=== PATIENT | female | born 1935 | race Caucasian/White ===

== ENCOUNTER 2017-09-29 17:27 | Inpatient (IN) | payer MEDICARE ==
[2017-09-29] MEDS ORDERED: Lactated Ringers 1,000 ML IV ONE (19:04)
--- NOTE | 2017-09-29 19:11 | PCM.HP ---
History of Present Illness - Chief Complaint Chief Complaint: Sepsis,Parotitis left neck Date: 09/29/17 History of Present Illness: is a 82 year old female. who is new in the last 1 month to [facility] previously being a patient at [facility]. She has a complicated past medical history with history of stroke, diabetes, anemia, afib and renal failure. She was doing well until waking up this am confused with fever and left neck swelling that was red and hot she subsequently became more tender and was not eating or drinking at [facility]. She was evaluated at [facility] were she was diaphoretic weak and in pain with tachycardia and fever. She was treated with tylenol and po clindamycin that started this am as well as warm compresses to the neck. She developed a blistered area to the central chest as well. her family was contacted and with her progressive worsening and the severity of the swelling was transported to [place] for direct admission for further work up and mgmt. - Review of Systems Constitutional: Fever, Chills, Fatigue Eyes: No Symptoms Ears, Nose, & Throat: No Symptoms Respiratory: No Cough, No Short Of Breath Cardiac: Edema, No Chest Pain, No Syncope Abdominal/Gastrointestinal: No Abdominal Pain, No Nausea, No Vomiting, No Diarrhea Genitourinary Symptoms: No Dysuria Musculoskeletal: No Back Pain, No Neck Pain Skin: No Rash Neurological: No Dizziness, No Focal Weakness, No Sensory Changes Psychological: No Symptoms Endocrine: No Symptoms Hematologic/Lymphatic: No Symptoms Immunological/Allergic: No Symptoms - Past Medical History Past Medical History: Yes Neurological History: Dementia, Stroke Cardiac History: Congestive Heart Failure (chronic diastolic), Hypertension CARDIAC HISTORY: Arrhythmia (chronic atrial fibrillation) Respiratory History: COPD, Other Endocrine Medical History: Diabetes Type II, Hypothyroidism History: Other (hx of ovarian cancer) - Past Surgical History Past Surgical History: Yes Female Surgical History: Hysterectomy Other Surgical History: tonsillectomy - Social History Smoking Status: Unknown if ever smoked Exposure to second hand smoke: No Significant Family History: no pertinent family hx - Physical Exam General Appearance: mild distress, obese, other (she does periodic breathing breathing rapidly then pausing. She opens her eyes spontaneously her speech is mumbled and difficult to understand at times this is chronic but worse currently.) Neurologic Exam: cooperative Eye Exam: pale conjunctivae, No scleral icterus Ears, Nose, Throat Exam: moist mucous membranes, other (no dentetions) Neck Exam: other (left neck at area of inferior parotid gland very firm swollen red hot and tender) Respiratory Exam: normal breath sounds, lungs clear Cardiovascular Exam: regular rate/rhythm, edema (2-3+ joon LE edema), No murmur Gastrointestinal/Abdomen Exam: soft, normal bowel sounds, other (obesity limits eam), No tenderness, No distention Extremity Exam: pedal edema, No calf tenderness Skin Exam: warm, dry, other (ecchymosis vs early blister central chest large), No jaundice Results - Radiology Impressions Radiology Exams & Impressions: Radiology Procedures Category Date Time Status CHEST 1 VIEW (PORTABLE) Urgent Exams 09/29/17 19:03 Ordered NECK WO CONTRAST [CT] Routine Exams 09/29/17 19:00 Ordered Assessment/Plan (1) Sepsis Current Visit: Yes Status: Acute Assessment & Plan: suspected due to parotitis vs abscess in neck she does not have any dentition she was on outpatient po clinda started this am but had continued decline in status sent for direct admission getting lactic acid, abg, cbc c diff, cmp, blood cultures, inr, bnp, ua ct neck chest xray bolus LR 1 L over 2 hours start meropenem 1g iv q8h and vanc pharmacy to dose (2) Parotitis Current Visit: Yes Status: Acute Code(s): K11.20 - SIALOADENITIS, UNSPECIFIED (3) Type 2 diabetes mellitus Current Visit: Yes Status: Acute (4) CKD (chronic kidney disease) Current Visit: Yes Status: Acute Code(s): N18.9 - CHRONIC KIDNEY DISEASE, UNSPECIFIED (5) Atrial fibrillation Current Visit: Yes Status: Chronic Qualifiers: Atrial fibrillation type: chronic Qualified Code(s): I48.2 - Chronic atrial fibrillation Code(s): I48.91 - UNSPECIFIED ATRIAL FIBRILLATION
[2017-09-29 20:01] LABS: A-aADO2 39; ARTERIAL BLD GAS O2 SATURATION 57.9 % (95-100); ARTERIAL BLOOD GAS BASE EXCESS 22.3 (-2.0-2.0); ARTERIAL BLOOD GAS FIO2 21 %; Lactic Acid 1.8 (0.4-2.0)
[2017-09-29 20:07] LABS: ALLEN TEST OK? yes; ARTERIAL BLOOD GAS PO2 24 mmHg (75-100)
[2017-09-29 20:24] LABS: Mean Cell Volume 110.9 fl (78-100); Mean Corpuscular Hemoglobin 30.8 pg (26-32); Mean Platelet Volume 12.7 fl (6-9.5); Platelet Count 169 K/mm3 (150-450); Red Blood Count 4.02 M/mm3 (4.1-5.4); Red Cell Distribution Width 19.9 % (11.5-14.0); White Blood Count 17.4 K/mm3 (4.0-10.5)
[2017-09-29 20:33] LABS: ALBUMIN 1.9 g/dL (3.4-5.0); ANION GAP 8.2 MEQ/L (5-15); BILIRUBIN,TOTAL 0.3 mg/dL (0.2-1.0); Carbon Dioxide 41.8 mEq/L (21-32); Potassium 4.4 mEq/L (3.5-5.1); Total Protein 8.1 gm/dL (6.4-8.2)
[2017-09-29 20:35] LABS: INR 2.7 (0.8-3.0); PROTIME 30.3 SECONDS (9.95-12.35)
[2017-09-29] MEDS ORDERED: Merrem 1 GM IV ONE (21:10)
[2017-09-29] MEDS ORDERED: Sodium Chloride 0.9% 100 ML IVPB 100 ML IV ONE (21:11)
[2017-09-29] MEDS: Dextrose 5%/Water IV Soln. 1000 ML 1,000 ML IV SCH (22:10)
[2017-09-29] MEDS: Merrem 1 GM 1 G in Sodium Chloride 100ML MINI-BAG PLUS 100 ML IV SCH (22:10)
[2017-09-29] MEDS ORDERED: VANCOCIN 1 GM VIAL*** 1 GM in Sodium Chloride 0.9% 250 ML 250 ML IV SCH (23:00)
[2017-09-29 23:13] LABS: Eosinophil 1 % (0.00-3.0); Nucleated Red Blood Cell 1 %; Total Cells Counted 100
[2017-09-29 23:15] LABS: ANISOCYTOSIS 1+; Macrocytosis 1+; Platelet Estimate NORMAL (NORMAL); Polychromasia 1+
[2017-09-29] MEDS ORDERED: Vancomycin 1GM/ Ns 250ML*** 250 ML IV ONE (23:34)
[2017-09-29 23:50] LABS: Bilirubin NEGATIVE (NEGATIVE); Blood 250 Ery/ul (0-5); COMPLETE URINE MICROSCOPIC? YES; Collection Type VOID; Glucose NEGATIVE (NEGATIVE); Leukocyte Esterase 1+ (NEGATIVE)
[2017-09-29 23:51] LABS: Bacteria MODERATE /HPF (NEGATIVE); Epithelial Cells MODERATE /HPF (FEW)
[2017-09-30] MEDS: Colace 100 MG PO SCH ×2 (01:46→22:32)
[2017-09-30] MEDS: Coreg 6.25 MG PO SCH ×3 (01:46→22:32)
[2017-09-30] MEDS: ZOCOR 20MG PO SCH ×2 (01:47→22:32)
[2017-09-30] MEDS: Lantus Insulin SQ SCH ×2 (01:47→22:32)
[2017-09-30] MEDS: MAG-OX 400 PO SCH ×3 (01:47→22:32)
[2017-09-30] MEDS ORDERED: Merrem 1 GM IV ONE (05:11)
[2017-09-30] MEDS ORDERED: Sodium Chloride 0.9% 100 ML IVPB 100 ML IV ONE (05:11)
[2017-09-30] MEDS: Merrem 1 GM 1 G in Sodium Chloride 100ML MINI-BAG PLUS 100 ML IV SCH (06:43)
[2017-09-30 06:56] LABS: ANION GAP 9.1 MEQ/L (5-15); Carbon Dioxide 39.9 mEq/L (21-32); Potassium 4.4 mEq/L (3.5-5.1)
--- NOTE | 2017-09-30 08:24 | PCM.NOTE ---
Date and Time: 09/30/17 0808 she continues to have mumbling but is awake and alert. difficult to understand her at this time she follows simple commands Objective Exam General Appearance: no apparent distress, alert, obese Neurologic Exam: alert, oriented x 3, cooperative, normal mood/affect, nml cerebellar function, sensation nml, No motor deficits Skin Exam: normal color, warm, dry Eye Exam: PERRL, EOMI, eyes nml inspection Ears, Nose, Throat Exam: moist mucous membranes, other (no dentition large firm red warm tender left parotid gland) Neck Exam: normal inspection, non-tender, supple, full range of motion Respiratory Exam: normal breath sounds, lungs clear, No respiratory distress Cardiovascular Exam: irregular Gastrointestinal/Abdomen Exam: soft, normal bowel sounds, No tenderness, No mass Extremity Exam: normal inspection, normal range of motion, pedal edema Back Exam: normal inspection, normal range of motion, No CVA tenderness, No vertebral tenderness Pelvic Exam: deferred Rectal Exam: deferred OBJECTIVE DATA Vital Signs: Vital Signs - 24 hr Temp Pulse Resp BP Pulse Ox 09/30/17 06:51 98.5 F 56 L 20 126/58 99 09/30/17 04:00 97.9 F 73 18 120/66 97 09/29/17 23:57 98.0 F 73 17 112/58 98 09/29/17 22:53 97.4 F 68 24 126/50 96 09/29/17 20:55 97.4 F 68 126/50 96 Oxygen-Last 24 hours O2 Percentage 2 Liters = 28% O2 Percentage 2 Liters = 28% O2 Percentage 2 Liters = 28% Intake and Output: Intake & Output 09/27/17 09/28/17 09/29/17 09/30/17 11:59 11:59 11:59 11:59 Intake Total 1559 Balance 1559 Weight 95.889 kg Lab Results: Accuchecks Date 09/30/17 Time 07:30 Accucheck Value: 217 Accucheck Value: 150 Lab Results-Last 24 Hours 09/29/17 09/29/17 09/29/17 Range/Units 19:45 19:57 19:57 WBC 17.4 H (4.0-10.5) K/mm3 RBC 4.02 L (4.1-5.4) M/mm3 Hgb 12.4 (12.0-16.0) gm/dl Hct 44.6 (35-47) % MCV 110.9 H (78-100) fl MCH 30.8 (26-32) pg MCHC 27.8 L (32-36) g/dl RDW 19.9 H (11.5-14.0) % Plt Count 169 (150-450) K/mm3 MPV 12.7 H (6-9.5) fl Segmented Neutrophils 78 H (36.0-66.0) % Lymphocytes (Manual) 18 L (24-44) % Monocytes (Manual) 3 (0.0-12.0) % Eosinophils (Manual) 1 (0.00-3.0) % Nucleated RBCs 1 % Differential Comment ABNORMAL Platelet Estimate NORMAL (NORMAL) Polychromasia 1+ Anisocytosis 1+ Macrocytosis 1+ INR (0.8-3.0) Puncture Site LH pCO2 69 H* (35-45) mmHg pO2 24 L* (75-100) mmHg Base Excess 22.3 H (-2.0-2.0) O2 Saturation 55.1 L (94-100) g/dF ABG pH 7.47 H (7.35-7.45) ABG HCO3 50.2 H* (22-28) ABG O2 Sat (Measured) 57.9 L (95-100) % Blaze Test yes A-a Gradient 39 a/A Ratio 0.38 Hemoglobin 12.8 Carboxyhemoglobin 4.2 (0.0-6.9) % THgb Methemoglobin 0.7 L (1.4-1.5) % Potassium 4.7 4.4 (3.5-5.1) Temperature 37.0 C POC O2 Flow Rate 21 % Sodium 160 H* (136-145) mEq/L Chloride 116 H (98-107) mEq/L Carbon Dioxide 41.8 H (21-32) mEq/L Anion Gap 8.2 (5-15) MEQ/L BUN 62 H (9-20) mg/dL Creatinine 2.81 H (0.55-1.30) mg/dl Estimated GFR 17 ML/MIN Glucose 181 H (70-110) MG/DL Lactic Acid 1.8 (0.4-2.0) Calcium 9.5 (8.5-10.1) mg/dL Total Bilirubin 0.30 (0.2-1.0) mg/dL AST 32 (15-37) U/L ALT 17 (12-78) U/L Alkaline Phosphatase 120 H (46-116) U/L NT-Pro-B Natriuret Pep 3069 H (0-450) pg/ml Serum Total Protein 8.1 (6.4-8.2) gm/dL Albumin 1.9 L (3.4-5.0) g/dL Prealbumin (18.0-35.7) mg/dL Ur Collection Type Urine Color (YELLOW) Urine Appearance (CLEAR) Urine pH (5-6) Ur Specific [place] (1.005-1.025) Urine Protein (Negative) Urine Ketones (NEGATIVE) Urine Blood (0-5) Asad/ul Urine Nitrite (NEGATIVE) Urine Bilirubin (NEGATIVE) Urine Urobilinogen (0-1) mg/dL Ur Leukocyte Esterase (NEGATIVE) Urine Microscopic RBC (0-2) /HPF Urine Microscopic WBC (0-5) /HPF Ur Epithelial Cells (FEW) /HPF Urine Bacteria (NEGATIVE) /HPF Urine Glucose (NEGATIVE) mg/dL Specimen Received 09/29/17 09/29/17 09/30/17 Range/Units 19:57 23:44 05:23 WBC (4.0-10.5) K/mm3 RBC (4.1-5.4) M/mm3 Hgb (12.0-16.0) gm/dl Hct (35-47) % MCV (78-100) fl MCH (26-32) pg MCHC (32-36) g/dl RDW (11.5-14.0) % Plt Count (150-450) K/mm3 MPV (6-9.5) fl Segmented Neutrophils (36.0-66.0) % Lymphocytes (Manual) (24-44) % Monocytes (Manual) (0.0-12.0) % Eosinophils (Manual) (0.00-3.0) % Nucleated RBCs % Differential Comment Platelet Estimate (NORMAL) Polychromasia Anisocytosis Macrocytosis INR 2.70 (0.8-3.0) Puncture Site pCO2 (35-45) mmHg pO2 (75-100) mmHg Base Excess (-2.0-2.0) O2 Saturation (94-100) g/dF ABG pH (7.35-7.45) ABG HCO3 (22-28) ABG O2 Sat (Measured) (95-100) % Blaze Test A-a Gradient a/A Ratio Hemoglobin Carboxyhemoglobin (0.0-6.9) % THgb Methemoglobin (1.4-1.5) % Potassium 4.4 (3.5-5.1) Temperature C POC O2 Flow Rate % Sodium 160 H* (136-145) mEq/L Chloride 115 H (98-107) mEq/L Carbon Dioxide 39.9 H (21-32) mEq/L Anion Gap 9.1 (5-15) MEQ/L BUN 57 H (9-20) mg/dL Creatinine 2.57 H (0.55-1.30) mg/dl Estimated GFR 19 ML/MIN Glucose 248 H (70-110) MG/DL Lactic Acid (0.4-2.0) Calcium 9.4 (8.5-10.1) mg/dL Total Bilirubin (0.2-1.0) mg/dL AST (15-37) U/L ALT (12-78) U/L Alkaline Phosphatase (46-116) U/L NT-Pro-B Natriuret Pep (0-450) pg/ml Serum Total Protein (6.4-8.2) gm/dL Albumin (3.4-5.0) g/dL Prealbumin (18.0-35.7) mg/dL Ur Collection Type VOID Urine Color YELLOW (YELLOW) Urine Appearance SLIGHTLY CLOUDY (CLEAR) Urine pH 9.0 (5-6) Ur Specific [place] 1.005 (1.005-1.025) Urine Protein 30 (Negative) Urine Ketones NEGATIVE (NEGATIVE) Urine Blood 250 (0-5) Asad/ul Urine Nitrite POSITIVE (NEGATIVE) Urine Bilirubin NEGATIVE (NEGATIVE) Urine Urobilinogen NORMAL (0-1) mg/dL Ur Leukocyte Esterase 1+ (NEGATIVE) Urine Microscopic RBC 5-10 (0-2) /HPF Urine Microscopic WBC 2-5 (0-5) /HPF Ur Epithelial Cells MODERATE (FEW) /HPF Urine Bacteria MODERATE (NEGATIVE) /HPF Urine Glucose NEGATIVE (NEGATIVE) mg/dL Specimen Received 09/29/17 22309/30/17 Range/Units 05:23 WBC (4.0-10.5) K/mm3 RBC (4.1-5.4) M/mm3 Hgb (12.0-16.0) gm/dl Hct (35-47) % MCV (78-100) fl MCH (26-32) pg MCHC (32-36) g/dl RDW (11.5-14.0) % Plt Count (150-450) K/mm3 MPV (6-9.5) fl Segmented Neutrophils (36.0-66.0) % Lymphocytes (Manual) (24-44) % Monocytes (Manual) (0.0-12.0) % Eosinophils (Manual) (0.00-3.0) % Nucleated RBCs % Differential Comment Platelet Estimate (NORMAL) Polychromasia Anisocytosis Macrocytosis INR (0.8-3.0) Puncture Site pCO2 (35-45) mmHg pO2 (75-100) mmHg Base Excess (-2.0-2.0) O2 Saturation (94-100) g/dF ABG pH (7.35-7.45) ABG HCO3 (22-28) ABG O2 Sat (Measured) (95-100) % Blaze Test A-a Gradient a/A Ratio Hemoglobin Carboxyhemoglobin (0.0-6.9) % THgb Methemoglobin (1.4-1.5) % Potassium (3.5-5.1) Temperature C POC O2 Flow Rate % Sodium (136-145) mEq/L Chloride (98-107) mEq/L Carbon Dioxide (21-32) mEq/L Anion Gap (5-15) MEQ/L BUN (9-20) mg/dL Creatinine (0.55-1.30) mg/dl Estimated GFR ML/MIN Glucose (70-110) MG/DL Lactic Acid (0.4-2.0) Calcium (8.5-10.1) mg/dL Total Bilirubin (0.2-1.0) mg/dL AST (15-37) U/L ALT (12-78) U/L Alkaline Phosphatase (46-116) U/L NT-Pro-B Natriuret Pep (0-450) pg/ml Serum Total Protein (6.4-8.2) gm/dL Albumin (3.4-5.0) g/dL Prealbumin 11.7 L (18.0-35.7) mg/dL Ur Collection Type Urine Color (YELLOW) Urine Appearance (CLEAR) Urine pH (5-6) Ur Specific [place] (1.005-1.025) Urine Protein (Negative) Urine Ketones (NEGATIVE) Urine Blood (0-5) Asad/ul Urine Nitrite (NEGATIVE) Urine Bilirubin (NEGATIVE) Urine Urobilinogen (0-1) mg/dL Ur Leukocyte Esterase (NEGATIVE) Urine Microscopic RBC (0-2) /HPF Urine Microscopic WBC (0-5) /HPF Ur Epithelial Cells (FEW) /HPF Urine Bacteria (NEGATIVE) /HPF Urine Glucose (NEGATIVE) mg/dL Specimen Received Radiology Exams: Radiology Procedures Category Date Time Status CHEST 1 VIEW (PORTABLE) Urgent Exams 09/29/17 19:03 Taken NECK WO CONTRAST [CT] Routine Exams 09/29/17 19:00 Taken Multi-Disciplinary Progress Notes: Multi-Disciplinary Progress Notes 09/30/17 07:30 Pharmacy Note by Tom Adam DOSING CONSULT DUE TO DECREASED RENAL FUNCTION: MERREM AND VANCOMYCIN CALCULATED CREATININE CLEARANCE = 13 ML/MIN RECOMMENDED RENAL DOSE FOR MERREM 500 MG Q12H CALCULATED VANCOMYCIN DOSE: 1 GM Q48H PREDICTED TROUGH = 13 MG/ML ABILIO Initialized on 09/30/17 07:30 - END OF NOTE Assessment/Plan (1) Sepsis Current Visit: Yes Status: Acute Assessment & Plan: sepsis secondary to large left parotitis improving she was on po clinda for <24 hours as outpatient prior to admission will hold her diuretics, potassium and calcium channel dori monitor the renal function continue emperic coverage with meropenem and vanc. continue the D5W for the hypernatremia she had Na of 143 on check 11 days prior to presentation so was rahter acute will try to avoid rapid correction however and also with the diabetes and severe diastolic chf with massive edema try to avoid fluid overload with her current stable vitals and good peripheral perfusion. (2) Parotitis Current Visit: Yes Status: Acute Code(s): K11.20 - SIALOADENITIS, UNSPECIFIED (3) Type 2 diabetes mellitus Current Visit: Yes Status: Acute (4) CKD (chronic kidney disease) Current Visit: Yes Status: Acute Code(s): N18.9 - CHRONIC KIDNEY DISEASE, UNSPECIFIED (5) Atrial fibrillation Current Visit: Yes Status: Chronic Qualifiers: Atrial fibrillation type: chronic Qualified Code(s): I48.2 - Chronic atrial fibrillation Code(s): I48.91 - UNSPECIFIED ATRIAL FIBRILLATION (6) Acute kidney injury Current Visit: Yes Status: Acute Code(s): N17.9 - ACUTE KIDNEY FAILURE, UNSPECIFIED (7) Hypernatremia Current Visit: Yes Status: Acute Code(s): E87.0 - HYPEROSMOLALITY AND HYPERNATREMIA
[2017-09-30] MEDS: NovoLOG Insulin SQ PRN ×4 (08:31→22:33)
[2017-09-30] MEDS ORDERED: MILK OF MAGNESIA 30 ML PO PRN (08:35)
[2017-09-30] MEDS ORDERED: TYLENOL 325 MG PO PRN (08:35)
[2017-09-30] MEDS ORDERED: NON-FORMULARY ITEM (Ondansetron Hcl [Ondansetron Hcl] 4 MG) PO PRN (08:35)
--- NOTE | 2017-09-30 08:40 | XRAY ---
Indication: Hypoxia. Sepsis. Comparison: None Portable chest slightly underinflated with some respiration artifact. A few calcific granulomas. No focal infiltrate, consolidation, or large effusion. Heart is borderline enlarged. Bony thorax intact with mild osteopenia and degenerative changes. Impression: Nonacute limited chest with chronic features. Comment: Preliminary interpretation was made by [facility]. No discrepancy.
[2017-09-30] MEDS ORDERED: ZOFRAN ODT 4 MG PO PRN (08:41)
--- NOTE | 2017-09-30 08:46 | XRAY ---
Indication: Left parotiditis. Sepsis. Multiple contiguous axial images obtained through the neck without contrast as ordered. Comparison: None Left parotid gland is prominent with stranding consistent with parotiditis. Lesser degree seen of the left submandibular gland. No suspicious fluid collection or salivary calculi. Small subcentimeter cervical lymph nodes bilaterally. No pathologic cervical or supraclavicular lymphadenopathy. Benign-appearing chunky calcification deep to the right sternocleidomastoid muscle. Minimal carotid calcifications bilaterally. Supra-and infraglottic airway is widely patent. Normal epiglottis. Thyroid gland atrophic. Visualized cervical spine intact with moderate/advanced multilevel degenerative changes including 3 mm C4 spondylolisthesis. Right apical calcified granuloma. Base of the brain unremarkable. Impression: 1. CT findings favoring left parotiditis/sialoadenitis. 2. Multilevel cervical spine degenerative changes including C4 grade 1 spondylolisthesis. Comment: Preliminary interpretation was made by [facility]. No discrepancy. CT DI 26.49
[2017-09-30] MEDS ORDERED: NON-FORMULARY ITEM (Sertraline Hcl [Sertraline Hcl] 100 MG) PO SCH (10:00)
[2017-09-30] MEDS ORDERED: NON-FORMULARY ITEM (Omeprazole [Omeprazole] 20 MG) PO SCH (10:00)
[2017-09-30] MEDS: Ferrous Sulfate (IRON) 220 MG/5 ML PO SCH (10:49)
[2017-09-30] MEDS: Aricept 10 MG PO SCH (10:49)
[2017-09-30] MEDS: SYNTHROID 100 MCG PO SCH (10:50)
[2017-09-30] MEDS: ZOLOFT 50 MG TABLET PO SCH (10:50)
[2017-09-30] MEDS: Protonix 40MG Tablet PO SCH (10:50)
[2017-09-30] MEDS: NovoLOG Insulin SQ SCH (16:55)
[2017-09-30] MEDS: Dextrose 5%/Water IV Soln. 1000 ML 1,000 ML IV SCH (17:38)
[2017-09-30] MEDS ORDERED: Coumadin 3 MG PO SCH (18:00)
[2017-09-30] MEDS: MERREM 500MG 500 MG in Sodium Chloride 100ML MINI-BAG PLUS 100 ML IV SCH (22:40)
[2017-10-01 05:40] LABS: Mean Cell Volume 109.1 fl (78-100); Mean Platelet Volume 12.2 fl (6-9.5); Platelet Count 163 K/mm3 (150-450); Red Blood Count 3.64 M/mm3 (4.1-5.4); Red Cell Distribution Width 18.3 % (11.5-14.0); White Blood Count 12.2 K/mm3 (4.0-10.5)
[2017-10-01 05:47] LABS: Mean Corpuscular Hemoglobin 31.5 pg (26-32)
[2017-10-01] MEDS ORDERED: LEVOTHYROXINE SODIUM 200 MCG PO SCH (06:00)
[2017-10-01 06:18] LABS: INR 3.68 (0.8-3.0); PROTIME 41.5 SECONDS (9.95-12.35)
[2017-10-01 06:21] LABS: ALBUMIN 1.6 g/dL (3.4-5.0); ANION GAP 4.7 MEQ/L (5-15); BILIRUBIN,TOTAL 0.3 mg/dL (0.2-1.0); Carbon Dioxide 41.6 mEq/L (21-32); MAGNESIUM 2.4 mg/dL (1.8-2.4); Total Protein 6.9 gm/dL (6.4-8.2)
[2017-10-01 06:55] LABS: ARTERIAL BLOOD GAS pH 7.47 (7.35-7.45)
[2017-10-01 07:06] LABS: Eosinophil 2 % (0.00-3.0); Platelet Estimate NORMAL (NORMAL); Total Cells Counted 100
[2017-10-01 07:07] LABS: ANISOCYTOSIS 1+; Hypersegmented Polys 1+; Polychromasia 1+; Toxic Granulation 1+
[2017-10-01] MEDS: POTASSIUM CHLORIDE 20 mEq IN WATER 100ML 20 MEQ/100 ML BAG IV SCH ×2 (08:11→09:55)
[2017-10-01] MEDS: NovoLOG Insulin SQ SCH ×3 (08:15→16:43)
--- NOTE | 2017-10-01 08:26 | PCM.NOTE ---
Date and Time: 10/01/17825 Subjective Assessment: she is much more awake and alert today communicating well today trying to help feed herself has some pain in the neck that is "not too bad" Objective Exam General Appearance: alert, obese Neurologic Exam: alert, cooperative, normal mood/affect, nml cerebellar function , sensation nml, No motor deficits Skin Exam: normal color, warm, dry Eye Exam: PERRL, EOMI, eyes nml inspection Ears, Nose, Throat Exam: normal ENT inspection, pharynx normal, moist mucous membranes, other (left parotid firm tender no warmth or redness today no fluctuance) Neck Exam: normal inspection, non-tender, supple, full range of motion Respiratory Exam: normal breath sounds, lungs clear, No respiratory distress Cardiovascular Exam: regular rate/rhythm, normal heart sounds, edema Gastrointestinal/Abdomen Exam: soft, No tenderness, No mass Extremity Exam: normal inspection, normal range of motion, pedal edema, No calf tenderness Back Exam: normal inspection, normal range of motion, No CVA tenderness, No vertebral tenderness Pelvic Exam: deferred Rectal Exam: deferred OBJECTIVE DATA Vital Signs: Vital Signs - 24 hr Temp Pulse Resp BP Pulse Ox 10/01/17 07:02 98.0 F 75 18 117/67 97 10/01/17 06:00 18 10/01/17 03:22 98.4 F 61 18 113/68 98 10/01/17 02:00 18 10/01/17 00:00 98.1 F 67 18 121/57 97 09/30/17 22:25 97 09/30/17 19:27 98.5 F 80 20 128/60 95 09/30/17 18:00 96 H 09/30/17 16:00 98.6 F 62 96 H 122/58 09/30/17 14:00 96 H 09/30/17 11:08 98.7 F 60 18 122/56 99 Oxygen-Last 24 hours O2 Percentage 2 Liters = 28% O2 Percentage 2 Liters = 28% O2 Percentage 2 Liters = 28% Pain Assessment - Last Documented Pain Intensity 0 Pain Scale Used 0-10 Pain Scale Intake and Output: Intake & Output 09/28/17 09/29/17 09/30/17 10/01/17 11:59 11:59 11:59 11:59 Intake Total 1799 1356 Balance 1799 1356 Weight 95.889 kg Lab Results: Accuchecks Date 10/01/17 Date 09/30/17 Date 09/30/17 Date 09/30/17 Time 07:30 Time 22:00 Time 16:30 Time 11:30 Accucheck Value: 98 Accucheck Value: 204 Accucheck Value: 198 Accucheck Value: 268 Lab Results-Last 24 Hours 09/29/17 09/30/17 10/01/17 Range/Units 19:45 05:00 05:17 WBC 12.2 H (4.0-10.5) K/mm3 RBC 3.64 L (4.1-5.4) M/mm3 Hgb 11.5 L (12.0-16.0) gm/dl Hct 39.7 (35-47) % MCV 109.1 H (78-100) fl MCH 31.5 (26-32) pg MCHC 29.0 L (32-36) g/dl RDW 18.3 H (11.5-14.0) % Plt Count 163 (150-450) K/mm3 MPV 12.2 H (6-9.5) fl Segmented Neutrophils 70 H (36.0-66.0) % Lymphocytes (Manual) 19 L (24-44) % Monocytes (Manual) 9 (0.0-12.0) % Eosinophils (Manual) 2 (0.00-3.0) % Differential Comment ABNORMAL Hypersegmented Polys 1+ Toxic Granulation 1+ Platelet Estimate NORMAL (NORMAL) Polychromasia 1+ Anisocytosis 1+ INR (0.8-3.0) ABG pH 7.47 H (7.35-7.45) Sodium (136-145) mEq/L Potassium (3.5-5.1) mEq/L Chloride (98-107) mEq/L Carbon Dioxide (21-32) mEq/L Anion Gap (5-15) MEQ/L BUN (9-20) mg/dL Creatinine (0.55-1.30) mg/dl Estimated GFR ML/MIN Glucose (70-110) MG/DL Calcium (8.5-10.1) mg/dL Magnesium (1.8-2.4) mg/dL Total Bilirubin (0.2-1.0) mg/dL AST (15-37) U/L ALT (12-78) U/L Alkaline Phosphatase (46-116) U/L Serum Total Protein (6.4-8.2) gm/dL Albumin (3.4-5.0) g/dL TSH 3rd Generation 0.182 L (0.358-3.740) mIU/L 10/01/17 10/01/17 Range/Units 05:17 05:17 WBC (4.0-10.5) K/mm3 RBC (4.1-5.4) M/mm3 Hgb (12.0-16.0) gm/dl Hct (35-47) % MCV (78-100) fl MCH (26-32) pg MCHC (32-36) g/dl RDW (11.5-14.0) % Plt Count (150-450) K/mm3 MPV (6-9.5) fl Segmented Neutrophils (36.0-66.0) % Lymphocytes (Manual) (24-44) % Monocytes (Manual) (0.0-12.0) % Eosinophils (Manual) (0.00-3.0) % Differential Comment Hypersegmented Polys Toxic Granulation Platelet Estimate (NORMAL) Polychromasia Anisocytosis INR 3.68 H (0.8-3.0) ABG pH (7.35-7.45) Sodium 157 H* (136-145) mEq/L Potassium 3.0 L* (3.5-5.1) mEq/L Chloride 113 H (98-107) mEq/L Carbon Dioxide 41.6 H (21-32) mEq/L Anion Gap 4.7 L (5-15) MEQ/L BUN 46 H (9-20) mg/dL Creatinine 2.08 H (0.55-1.30) mg/dl Estimated GFR 24 ML/MIN Glucose 85 (70-110) MG/DL Calcium 9.2 (8.5-10.1) mg/dL Magnesium 2.4 (1.8-2.4) mg/dL Total Bilirubin 0.30 (0.2-1.0) mg/dL AST 23 (15-37) U/L ALT 13 (12-78) U/L Alkaline Phosphatase 96 (46-116) U/L Serum Total Protein 6.9 (6.4-8.2) gm/dL Albumin 1.6 L (3.4-5.0) g/dL TSH 3rd Generation (0.358-3.740) mIU/L Radiology Exams: Radiology Procedures Category Date Time Status CHEST 1 VIEW (PORTABLE) Urgent Exams 09/29/17 19:03 Completed NECK WO CONTRAST [CT] Routine Exams 09/29/17 19:00 Completed Assessment/Plan (1) Sepsis Current Visit: Yes Status: Acute Assessment & Plan: continue empiric antibiotic coverage it is improving do the warm compresses increase the D5w to 120 mL/h for the hypernatremia replace the K recheck bmp this afternoon continue off the diuretics with the artem that is slowly improving if continues to improve and hyernatremia improving possible for back to [place] in the next 1 to 2 days. (2) Parotitis Current Visit: Yes Status: Acute Code(s): K11.20 - SIALOADENITIS, UNSPECIFIED (3) Type 2 diabetes mellitus Current Visit: Yes Status: Acute (4) CKD (chronic kidney disease) Current Visit: Yes Status: Acute Code(s): N18.9 - CHRONIC KIDNEY DISEASE, UNSPECIFIED (5) Atrial fibrillation Current Visit: Yes Status: Chronic Qualifiers: Atrial fibrillation type: chronic Qualified Code(s): I48.2 - Chronic atrial fibrillation Code(s): I48.91 - UNSPECIFIED ATRIAL FIBRILLATION (6) Acute kidney injury Current Visit: Yes Status: Acute Code(s): N17.9 - ACUTE KIDNEY FAILURE, UNSPECIFIED (7) Hypernatremia Current Visit: Yes Status: Acute Code(s): E87.0 - HYPEROSMOLALITY AND HYPERNATREMIA (8) Hypokalemia Current Visit: Yes Status: Acute Code(s): E87.6 - HYPOKALEMIA
[2017-10-01] MEDS: Coreg 6.25 MG PO SCH ×2 (08:54→21:36)
[2017-10-01] MEDS: SYNTHROID 100 MCG PO SCH (08:54)
[2017-10-01] MEDS: ZOLOFT 50 MG TABLET PO SCH (08:54)
[2017-10-01] MEDS: Protonix 40MG Tablet PO SCH (08:55)
[2017-10-01] MEDS: Aricept 10 MG PO SCH (08:56)
[2017-10-01] MEDS: Ferrous Sulfate (IRON) 220 MG/5 ML PO SCH (08:57)
[2017-10-01] MEDS: MAG-OX 400 PO SCH ×2 (08:57→21:36)
[2017-10-01] MEDS ORDERED: VANCOCIN 1 GM VIAL*** 1 GM in Sodium Chloride 0.9% 250 ML 250 ML IV SCH (10:00)
[2017-10-01] MEDS: MERREM 500MG 500 MG in Sodium Chloride 100ML MINI-BAG PLUS 100 ML IV SCH ×2 (10:05→21:35)
[2017-10-01 14:20] LABS: ANION GAP 6.7 MEQ/L (5-15); Carbon Dioxide 38.2 mEq/L (21-32); Potassium 3.5 mEq/L (3.5-5.1)
[2017-10-01] MEDS: Dextrose 5%/Water IV Soln. 1000 ML 1,000 ML IV SCH (20:04)
[2017-10-01] MEDS: ZOCOR 20MG PO SCH (21:36)
[2017-10-01] MEDS: NovoLOG Insulin SQ PRN (21:37)
[2017-10-01] MEDS: Lantus Insulin SQ SCH (21:37)
[2017-10-01] MEDS: Colace 100 MG PO SCH (21:45)
[2017-10-01] MEDS ORDERED: POTASSIUM CHLORIDE 20 MEQ POWDER FOR ORAL SOL PO SCH (22:00)
[2017-10-02] MEDS: Dextrose 5%/Water IV Soln. 1000 ML 1,000 ML IV SCH ×3 (04:59→13:16)
[2017-10-02 06:45] LABS: Mean Cell Volume 110.2 fl (78-100); Mean Platelet Volume 12.3 fl (6-9.5); Platelet Count 150 K/mm3 (150-450); Red Blood Count 3.62 M/mm3 (4.1-5.4); Red Cell Distribution Width 17.8 % (11.5-14.0); White Blood Count 9.3 K/mm3 (4.0-10.5)
[2017-10-02 06:53] LABS: ANION GAP 5.8 MEQ/L (5-15); Carbon Dioxide 37.4 mEq/L (21-32)
[2017-10-02 06:54] LABS: INR 3.99 (0.8-3.0)
[2017-10-02 06:55] LABS: Mean Corpuscular Hemoglobin 30.6 pg (26-32)
[2017-10-02] MEDS: NovoLOG Insulin SQ SCH ×3 (07:44→16:59)
[2017-10-02] MEDS: NovoLOG Insulin SQ PRN ×3 (07:45→17:00)
[2017-10-02 07:47] LABS: Total Cells Counted 100
--- NOTE | 2017-10-02 07:47 | PCM.NOTE ---
Date and Time: 10/02/1746 Subjective Assessment: she has been improving less pain in the neck still doing better eating communicating more at her baseline now talking has chronic dementia but is able to communicate with some mumbled speech well denies any new problems. Says she likes it here Objective Exam General Appearance: no apparent distress, alert, obese Neurologic Exam: alert, oriented x 3, cooperative, normal mood/affect, nml cerebellar function, sensation nml, No motor deficits Skin Exam: normal color, warm, dry Eye Exam: PERRL, EOMI, eyes nml inspection Ears, Nose, Throat Exam: normal ENT inspection, pharynx normal, moist mucous membranes Neck Exam: normal inspection, non-tender, supple, full range of motion, other ( left parotid large tender swelling has improved some no redness or warmt now) Respiratory Exam: normal breath sounds, lungs clear, No respiratory distress Cardiovascular Exam: regular rate/rhythm, normal heart sounds, edema Gastrointestinal/Abdomen Exam: soft, No tenderness, No mass Extremity Exam: normal inspection, normal range of motion, pedal edema Back Exam: normal inspection, normal range of motion, No CVA tenderness, No vertebral tenderness Pelvic Exam: deferred Rectal Exam: deferred OBJECTIVE DATA Vital Signs: Vital Signs - 24 hr Temp Pulse Resp BP Pulse Ox 10/02/17 07:43 97.9 F 58 L 22 128/61 90 L 10/02/17 05:58 20 10/02/17 04:00 97.3 F 75 20 128/61 100 10/02/17 02:00 20 10/02/17 00:00 99.3 F 75 20 159/59 93 L 10/01/17 23:24 95 10/01/17 22:00 16 10/01/17 20:00 97.9 F 104 H 16 123/58 94 L 10/01/17 16:00 98.4 F 78 18 118/68 96 10/01/17 13:27 18 10/01/17 11:18 98.4 F 76 18 120/62 96 Oxygen-Last 24 hours O2 Percentage 2 Liters = 28% O2 Percentage 3 Liters = 32% O2 Percentage 2 Liters = 28% O2 Percentage 2 Liters = 28% O2 Percentage 2 Liters = 28% Pain Assessment - Last Documented Pain Intensity 0 Pain Scale Used FLACC Intake and Output: Intake & Output 09/29/17 09/30/17 10/01/17 10/02/17 11:59 11:59 11:59 11:59 Intake Total 7000 4780 4032 Output Total 1 Balance 5748 0940 4036 Weight 95.889 kg 95.889 kg Lab Results: Accuchecks Date 10/02/17 Date 10/01/17 Date 10/01/17 Date 10/01/17 Time 07:30 Time 21:00 Time 16:30 Time 11:30 Accucheck Value: 167 Accucheck Value: 214 Accucheck Value: 137 Accucheck Value: 130 Lab Results-Last 24 Hours 10/01/17 10/02/17 10/02/17 Range/Units 14:05 05:45 05:45 WBC 9.3 (4.0-10.5) K/mm3 RBC 3.62 L (4.1-5.4) M/mm3 Hgb 11.1 L (12.0-16.0) gm/dl Hct 39.9 (35-47) % MCV 110.2 H (78-100) fl MCH 30.6 (26-32) pg MCHC 27.8 L (32-36) g/dl RDW 17.8 H (11.5-14.0) % Plt Count 150 (150-450) K/mm3 MPV 12.3 H (6-9.5) fl INR (0.8-3.0) Sodium 153 H* 151 H* (136-145) mEq/L Potassium 3.5 3.0 L* (3.5-5.1) mEq/L Chloride 112 H 111 H (98-107) mEq/L Carbon Dioxide 38.2 H 37.4 H (21-32) mEq/L Anion Gap 6.7 5.8 (5-15) MEQ/L BUN 41 H 34 H (9-20) mg/dL Creatinine 1.99 H 1.81 H (0.55-1.30) mg/dl Estimated GFR 25 28 ML/MIN Glucose 145 H 127 H (70-110) MG/DL Calcium 8.8 8.7 (8.5-10.1) mg/dL 10/02/17 Range/Units 05:45 WBC (4.0-10.5) K/mm3 RBC (4.1-5.4) M/mm3 Hgb (12.0-16.0) gm/dl Hct (35-47) % MCV (78-100) fl MCH (26-32) pg MCHC (32-36) g/dl RDW (11.5-14.0) % Plt Count (150-450) K/mm3 MPV (6-9.5) fl INR 3.99 H (0.8-3.0) Sodium (136-145) mEq/L Potassium (3.5-5.1) mEq/L Chloride (98-107) mEq/L Carbon Dioxide (21-32) mEq/L Anion Gap (5-15) MEQ/L BUN (9-20) mg/dL Creatinine (0.55-1.30) mg/dl Estimated GFR ML/MIN Glucose (70-110) MG/DL Calcium (8.5-10.1) mg/dL Multi-Disciplinary Progress Notes: Multi-Disciplinary Progress Notes 10/01/17 09:15 (created 10/01/17 14:44) Case Management Note by Kelly Miguel DISCHARGE PLAN REVIEWED, WILL RETURN TO [facility] ON DISCHARGE. NO ADDNL NEEDS NOTED. Initialized on 10/01/17 14:44 - END OF NOTE Assessment/Plan (1) Sepsis Current Visit: Yes Status: Resolved Assessment & Plan: replace the k increase the po replacement and do the iv for the low today Na better continue the D5W now at 120 mL/h adjust on this afternoon lab for the repeat K if improving well enough continue off the diuretics with the artem that is also improving. (2) Parotitis Current Visit: Yes Status: Acute Code(s): K11.20 - SIALOADENITIS, UNSPECIFIED (3) Type 2 diabetes mellitus Current Visit: Yes Status: Acute (4) CKD (chronic kidney disease) Current Visit: Yes Status: Acute Code(s): N18.9 - CHRONIC KIDNEY DISEASE, UNSPECIFIED (5) Atrial fibrillation Current Visit: Yes Status: Chronic Qualifiers: Atrial fibrillation type: chronic Qualified Code(s): I48.2 - Chronic atrial fibrillation Code(s): I48.91 - UNSPECIFIED ATRIAL FIBRILLATION (6) Acute kidney injury Current Visit: Yes Status: Acute Code(s): N17.9 - ACUTE KIDNEY FAILURE, UNSPECIFIED (7) Hypernatremia Current Visit: Yes Status: Acute Code(s): E87.0 - HYPEROSMOLALITY AND HYPERNATREMIA (8) Hypokalemia Current Visit: Yes Status: Acute Code(s): E87.6 - HYPOKALEMIA
[2017-10-02 07:52] LABS: Poikilocytosis 1+
[2017-10-02 07:53] LABS: ANISOCYTOSIS 1+; Platelet Estimate NORMAL (NORMAL)
[2017-10-02] MEDS: POTASSIUM CHLORIDE 20 mEq IN WATER 100ML 20 MEQ/100 ML BAG IV SCH ×2 (08:52→10:40)
[2017-10-02] MEDS: POTASSIUM CHLORIDE 20 MEQ POWDER FOR ORAL SOL PO SCH ×3 (08:57→21:44)
[2017-10-02] MEDS: SYNTHROID 100 MCG PO SCH (08:57)
[2017-10-02] MEDS: Ferrous Sulfate (IRON) 220 MG/5 ML PO SCH (08:57)
[2017-10-02] MEDS: Protonix 40MG Tablet PO SCH (08:58)
[2017-10-02] MEDS: ZOLOFT 50 MG TABLET PO SCH (08:58)
[2017-10-02] MEDS: Coreg 6.25 MG PO SCH ×2 (08:58→21:44)
[2017-10-02] MEDS: Aricept 10 MG PO SCH (08:58)
[2017-10-02] MEDS ORDERED: MAG-OX 400 PO SCH (10:00)
[2017-10-02] MEDS: MERREM 500MG 500 MG in Sodium Chloride 100ML MINI-BAG PLUS 100 ML IV SCH ×2 (13:16→22:18)
[2017-10-02 15:54] LABS: ANION GAP 7.6 MEQ/L (5-15); Carbon Dioxide 34.6 mEq/L (21-32); Potassium 3.8 mEq/L (3.5-5.1)
[2017-10-02] MEDS: ZOCOR 20MG PO SCH (21:44)
[2017-10-02] MEDS: Colace 100 MG PO SCH (21:44)
[2017-10-02] MEDS: Lantus Insulin SQ SCH (22:26)
[2017-10-03 05:42] LABS: Mean Cell Volume 103.6 fl (78-100); Mean Corpuscular Hemoglobin 30.9 pg (26-32); Mean Platelet Volume 11.8 fl (6-9.5); Platelet Count 156 K/mm3 (150-450); Red Blood Count 3.62 M/mm3 (4.1-5.4); White Blood Count 8.4 K/mm3 (4.0-10.5)
[2017-10-03 06:06] LABS: INR 3.82 (0.8-3.0); PROTIME 43.1 SECONDS (9.95-12.35)
[2017-10-03 06:11] LABS: ANION GAP 10.1 MEQ/L (5-15); Potassium 3.8 mEq/L (3.5-5.1)
[2017-10-03 07:04] VITALS: BP 100/49; PULSE 62
[2017-10-03] MEDS: Dextrose 5%/Water IV Soln. 1000 ML 1,000 ML IV SCH (07:18)
[2017-10-03 07:43] VITALS: O2SAT 94
--- NOTE | 2017-10-03 07:46 | PCM.DS ---
Discharge Summary Date of Admission: 09/29/17 18:34 Date of Discharge: 10/03/2017 Admitting Physician: MAU COWAN Primary Care Provider: JESSES MARIANNE SHANEOR Allergies Allergies KERLINE Inhibitors Allergy (Verified 09/29/17 23:28) adhesive tape Allergy (Verified 09/29/17 23:28) atorvastatin [From Lipitor] Allergy (Verified 09/29/17 23:28) diphenhydramine Allergy (Verified 09/29/17 23:28) levofloxacin [From Levaquin] Allergy (Verified 09/29/17 23:28) meperidine Allergy (Verified 09/29/17 23:28) NSAIDS (Non-Steroidal Anti-Inflamma Allergy (Verified 09/29/17:) Penicillins Allergy (Verified 09/29/17:) Hospital Summary - Hospital Course Hospital Course: SHe developed sudden onset of left parotitis and sepsis and was directly admitted from [facility]. SHe was confused and lethargic with fever and tachycardia. She was started on Vanc + meropenem due to pcn allergy and found to have acute kidney injury with hypernatremia and hypokalemia. Her diuretics were held and she was given fluid bolus with normal lactate she was started on gentle hydration with D5W and this was titrated up to improve her Na back to normal range it was weaned back down with a slight increase back at time of discharge but she is eating very well again and drinking well and her mental status is improved back to her baseline communicating well but with dementia. Her left parotitis with CT showing no evidence of abscess improved well on the antibiotics and was shrinking down in size well but drill press tender. On the day of discharge it had significantly shrunk in size in the last 24 to 48 hours but is still firm and tender but no warmth or redness. She has chronic edema in the lower extremities and her ca channel dori was stopped and with the hydration it appears the edema has stayed at its baseline without the diuretics at this point. ON day of discharge she is doing well and says she wants some [place] (it is Thanksgiving) - Vitals & Intake/Output Vital Signs: Vital Signs Temperature 98.0 F 10/03/17 07:02 Pulse Rate 62 10/03/17 07:02 Respiratory Rate 18 10/03/17 07:02 Blood Pressure 100/49 10/03/17 07:02 O2 Sat by Pulse Oximetry 98 10/03/17 07:02 Oxygen-Last Documented O2 Percentage 2 Liters = 28% Intake & Output: Intake & Output 09/30/17 10/01/17 10/02/17 10/03/17 11:59 11:59 11:59 11:59 Intake Total 1799 1476 4252 3072 Output Total 1 120 Balance 1799 1475 4252 2952 Weight 95.889 kg 95.889 kg - Lab Result Diagrams: 10/03/17 05:25 10/03/17 05:25 Lab Results-Last 24 Hrs: Accuchecks Date 10/02/17 Date 10/02/17 Date 10/02/17 Time 16:30 Time 11:30 Accucheck Value: 112 Accucheck Value: 336 Accucheck Value: 183 Lab Results-Last 24 Hours 10/02/17 10/02/17 10/03/17 Range/Units 05:45 15:32 05:25 WBC (4.0-10.5) K/mm3 RBC (4.1-5.4) M/mm3 Hgb (12.0-16.0) gm/dl Hct (35-47) % MCV (78-100) fl MCH (26-32) pg MCHC (32-36) g/dl RDW (11.5-14.0) % Plt Count (150-450) K/mm3 MPV (6-9.5) fl Segmented Neutrophils 66 (36.0-66.0) % Lymphocytes (Manual) 29 (24-44) % Monocytes (Manual) 5 (0.0-12.0) % Differential Comment ABNORMAL Platelet Estimate NORMAL (NORMAL) Poikilocytosis 1+ Anisocytosis 1+ INR (0.8-3.0) Sodium 145 (136-145) mEq/L Potassium 3.8 (3.5-5.1) mEq/L Chloride 107 (98-107) mEq/L Carbon Dioxide 34.6 H (21-32) mEq/L Anion Gap 7.6 (5-15) MEQ/L BUN 30 H (9-20) mg/dL Creatinine 1.66 H 1.41 H (0.55-1.30) mg/dl Estimated GFR 31 38 ML/MIN Glucose 96 (70-110) MG/DL Calcium 8.6 (8.5-10.1) mg/dL 10/03/17 10/03/17 10/03/17 Range/Units 05:25 05:25 05:25 WBC 8.4 (4.0-10.5) K/mm3 RBC 3.62 L (4.1-5.4) M/mm3 Hgb 11.2 L (12.0-16.0) gm/dl Hct 37.5 (35-47) % MCV 103.6 H (78-100) fl MCH 30.9 (26-32) pg MCHC 29.9 L (32-36) g/dl RDW 17.0 H (11.5-14.0) % Plt Count 156 (150-450) K/mm3 MPV 11.8 H (6-9.5) fl Segmented Neutrophils (36.0-66.0) % Lymphocytes (Manual) (24-44) % Monocytes (Manual) (0.0-12.0) % Differential Comment Platelet Estimate (NORMAL) Poikilocytosis Anisocytosis INR 3.82 H (0.8-3.0) Sodium 147 H (136-145) mEq/L Potassium 3.8 (3.5-5.1) mEq/L Chloride 107 (98-107) mEq/L Carbon Dioxide 34.0 H (21-32) mEq/L Anion Gap 10.1 (5-15) MEQ/L BUN 27 H (9-20) mg/dL Creatinine 1.41 H (0.55-1.30) mg/dl Estimated GFR 38 ML/MIN Glucose 77 (70-110) MG/DL Calcium 8.5 (8.5-10.1) mg/dL Micro Results-Entire Visit: Microbiology 09/29/17 21:42 Blood Culture - Preliminary Blood NO GROWTH TO DATE 09/29/17 19:57 Blood Culture - Preliminary Blood NO GROWTH TO DATE Accuchecks Date 10/02/17 Date 10/02/17 Date 10/02/17 Time 16:30 Time 11:30 Accucheck Value: 112 Accucheck Value: 336 Accucheck Value: 183 - Procedures and Test Procedures and Tests throughout Hospitalization: Therapy Orders & Screens 09/30/17 00:11 OT Screen per Nursing Assess ONCE Comment: Protocol Order Physician Instructions: Greater than 3 points order OT Admission Screening Reason For Exam: Triggered on Admission Diagnosis: Sepsis, parotitis left neck Open Wound/Cellutlitis/Pressure Ulcers: Yes Acute Fx/ORIF/Change in wt bearing status: No Severe MUSCULOSKELETAL pain: No ADL Dysfunction: Yes Acute CVA w/Hemiparesis/Hemiplegia: No Decreased Functional Mobility/Strength: No Sprain/Strain: No Acute Post-op Mobility Dysfunction: No Total Points: 8 ST Screen per Nursing Assess Comment: Protocol Order Physician Instructions: Greater than [address] Admission Screening Reason For Exam: Triggered on Admission Diagnosis: Sepsis, parotitis left neck CVA/Dyshpagia/Aphasia: No Cognitive Deficits: No Dehydration/Nutrition Deficit: No Reflux: No Oral-Motor Difficulties: Yes Pneumonia: No Fpc Resident: Yes Total Points: 8 09/30/17 22:25 Oxygen NASAL CANNULA 2 lpm Comment: Diagnosis: Sepsis, parotitis left neck Discharge Exam General Appearance: no apparent distress, alert, obese Neurologic Exam: alert, oriented x 3, cooperative, normal mood/affect, nml cerebellar function, sensation nml, No motor deficits Skin Exam: normal color, warm, dry Eye Exam: PERRL, EOMI, eyes nml inspection Ears, Nose, Throat Exam: normal ENT inspection, pharynx normal, moist mucous membranes, other (left parotid swollen firm but decreased in size no warmth or redness.) Neck Exam: normal inspection, supple, full range of motion Respiratory Exam: normal breath sounds, lungs clear, No respiratory distress Cardiovascular Exam: regular rate/rhythm, normal heart sounds, edema (1+ joon LE) Gastrointestinal/Abdomen Exam: soft, No tenderness, No mass Extremity Exam: normal inspection, normal range of motion Back Exam: normal inspection, normal range of motion, No CVA tenderness, No vertebral tenderness Pelvic Exam: deferred Rectal Exam: deferred Final Diagnosis/Problem List - Final Discharge Diagnosis/Problem (1) Sepsis Current Visit: Yes Status: Resolved (2) Parotitis Current Visit: Yes Status: Acute (3) Type 2 diabetes mellitus Current Visit: Yes Status: Acute (4) CKD (chronic kidney disease) Current Visit: Yes Status: Acute (5) Atrial fibrillation Current Visit: Yes Status: Chronic (6) Acute kidney injury Current Visit: Yes Status: Acute (7) Hypernatremia Current Visit: Yes Status: Acute (8) Hypokalemia Current Visit: Yes Status: Acute - Discharge Discharge Date: 10/03/17 Disposition: DC TO [facility] Condition: Stable Prescriptions: New Warfarin Sodium 1 mg [Coumadin 1 MG] 1 mg PO DAILY #30 tablet Levothyroxine Sodium 150 Mcg [Synthroid 150 Mcg] 150 mcg PO DAILY #30 tablet Potassium Chl 40 Meq Oral Kymberly* [Potassium Chl 40 Meq/30 ml Oral Solution] 40 meq PO DAILY #30 udcup Continue Sertraline HCl 100 mg PO DAILY Pravastatin Sodium 40 mg PO HS Omeprazole 20 mg PO DAILY Insulin Aspart [Novolog Flexpen] 100 unit SQ UD Magnesium Hydroxide 30 ml [Milk of Magnesia 30 ml] 30 ml PO DAILY PRN PRN PRN Reason: Constipation Insulin Glargine,Hum.rec.anlog [Lantus Solostar] 40 unit SQ HS Glucagon 1 mg [GlucaGen 1 MG] 1 mg IM UD PRN PRN Reason: Hypoglycemia Ferrous Sulfate 220 mg/5 ml [Ferrous Sulfate (IRON) 220 MG/5 ML] 5 ml PO DAILY Donepezil HCl 10 mg [Aricept 10 MG] 10 mg PO DAILY Docusate Sodium 100 mg [Colace 100 MG] 100 mg PO HS Carvedilol 6.25 mg [Coreg 6.25 MG] 6.25 mg PO BID Acetaminophen 325 mg [Tylenol 325 mg] 650 mg PO Q4H PRN PRN PRN Reason: Pain Ondansetron HCl 4 mg PO Q6H PRN PRN PRN Reason: Nausea Clindamycin HCl 300 mg PO QID 6 Days #24 Changed Magnesium Oxide 400 mg [Mag-Ox 400] 400 mg PO DAILY #30 tablet Discontinued Epoetin Reynaldo 70628 Units/ml [Procrit 43615 UNITS/ML] 10,000 unit SQ UD Metolazone 5 mg PO UD Levothyroxine Sodium 200 mcg PO 0600 Potassium Chloride [Klor-Con] 40 meq PO QID Diltiazem HCl 180 mg PO DAILY Warfarin Sodium 3 mg [Coumadin 3 MG] 3 mg PO 1600 Bumetanide 4 mg PO BID Bumetanide 1 mg PO BID Additional Instructions: no warfarin Saturday or Saturday Start 1 mg daily on Saturday and Check INR on Saturday check cbc, bmp, magnesium on Saturday as well. warm compresses to left cheek/neck 3 times a day for 7 days resume previous diet Follow up with: BUSHRA DAMON [Primary Care Provider] - 1 Week
[2017-10-03] MEDS: NovoLOG Insulin SQ SCH (08:05)
[2017-10-03] MEDS: NovoLOG Insulin SQ PRN (08:06)
[2017-10-03] MEDS ORDERED: TROUGH DRUG LEVELS IJ ONE (09:30)
== END 2017-10-03 09:15 | DRG 872 ==
LOC: MED SURG 18:34
PROVIDERS: ADMIT Family Medicine; ATTEND Family Medicine
DX: A41.9 Sepsis, unspecified organism (principal); E87.0 Hyperosmolality and hypernatremia; I13.0 Hypertensive heart and chronic kidney disease with heart failure and stage 1 through stage 4 chronic kidney disease, or unspecified chronic kidney disease; I50.32 Chronic diastolic (congestive) heart failure; K11.20 Sialoadenitis, unspecified; E11.9 Type 2 diabetes mellitus without complications; Z79.4 Long term (current) use of insulin; I48.2 Chronic atrial fibrillation; Z79.01 Long term (current) use of anticoagulants; E87.6 Hypokalemia; Z79.899 Other long term (current) drug therapy; Z86.73 Personal history of transient ischemic attack (TIA), and cerebral infarction without residual deficits; E03.9 Hypothyroidism, unspecified; Z85.43 Personal history of malignant neoplasm of ovary
CPT/HCPCS: 36415; 36600; 70490; 71010; 80048; 80053; 81000; 82375; 82565; 82803; 82962; 83605; 83735; 83880; 84134; 84443; 85025; 85027; 85610; 87040; 87077; 94760; J3370; J3480; A9270-GY

== ENCOUNTER 2017-11-22 11:58 | Inpatient (IN) | payer MEDICARE ==
[2017-11-22] MEDS ORDERED: BUMEX 1 MG IV STA (12:12)
[2017-11-22 12:25] LABS: BASOPHIL % 0.3 % (0.0-0.4); Basophil (Absolute #) 0.03 (0-0.4); Eosinophil % 3.4 % (0.00-5.0); Eosinophil (Absolute #) 0.32 (0-0.5); Granulocyte Absolute (ANC) 6.55 (1.4-6.9); Granulocytes % 68.7 % (36.0-66.0); Hematocrit 37.6 % (35-47); Hemoglobin 11.2 gm/dl (12.0-16.0); Lymphocyte (Absolute #) 1.76 (1.0-4.6); Lymphocytes % 18.5 % (24.0-44.0); Mean Cell Volume 101.3 fl (78-100); Mean Corpuscular Hgb Concent. 29.8 g/dl (32-36); Mean Platelet Volume 12.3 fl (6-9.5); Monocyte (Absolute #) 0.87 (0.0-1.3); Monocytes % 9.1 % (0.0-12.0); Platelet Count 204 K/mm3 (150-450); Red Blood Count 3.71 M/mm3 (4.1-5.4); Red Cell Distribution Width 15.8 % (11.5-14.0); White Blood Count 9.5 K/mm3 (4.0-10.5)
[2017-11-22] MEDS ORDERED: BUMEX 1 MG ONE ×2 (12:25→12:26)
[2017-11-22 12:27] LABS: Mean Corpuscular Hemoglobin 30.1 pg (26-32)
[2017-11-22 12:32] LABS: A-aADO2 274; ABG HEMOGLOBIN 11.9; ABG POTASSIUM 4.6 (3.5-5.1); ARTERIAL BLD GAS O2 SATURATION 100.3 % (95-100); ARTERIAL BLOOD GAS BASE EXCESS 6.2 (-2.0-2.0); ARTERIAL BLOOD GAS FIO2 100 %; ARTERIAL BLOOD GAS PO2 330 mmHg (75-100); CARBOXYHEMOGLOBIN 2.1 % THgb (0.0-6.9); HCO3- 36.4 (22-28); HGB O2 SAT 97.4 g/dF (94-100); Methhemoglobin 0.7 % (1.4-1.5); paO2 pAO1 0.55
[2017-11-22 12:33] LABS: ABG SITE RIGHT RADIAL; ALLEN TEST OK? YES; ARTERIAL BLOOD GAS PCO2 87 mmHg (35-45); ARTERIAL BLOOD GAS pH 7.23 (7.35-7.45)
[2017-11-22 12:46] LABS: INR 3.81 (0.8-3.0)
[2017-11-22 13:01] LABS: ALBUMIN 1.9 g/dL (3.4-5.0); ANION GAP 8.5 MEQ/L (5-15); BILIRUBIN,TOTAL 0.1 mg/dL (0.2-1.0); Calcium 8.7 mg/dL (8.5-10.1); Creatinine 1 1.59 mg/dl (0.55-1.30); Potassium 4.6 mEq/L (3.5-5.1); Total Protein 7.4 gm/dL (6.4-8.2)
--- NOTE | 2017-11-22 13:09 | XRAY ---
Indication: Dyspnea. Comparison: September 29, 2017. Portable chest markedly underinflated today accentuating the cardiopulmonary structures. Cardiomegaly obscures left lung base. Remaining lungs clear again with a few calcified granulomas. Bony thorax intact again with osteopenia and degenerative changes. Impression: Underinflated chest. Cardiomegaly. Nothing acute.
--- NOTE | 2017-11-22 13:15 | ERPHSYRPT ---
- History of Present Illness Time Seen by Provider: 11/22/17 12:15 Source: patient, half-way records Exam Limitations: clinical condition Patient Subjective Stated Complaint: EMS stated "we were dispatched to [facility] on a pt with a weight gain of about 15 lbs in two days and increase in difficulty breathing. we gave a dual neb tx and she went from 89% to 90%.". [facility] staff stated "she is being seen by Dr. Cowan and she has gained approx 15 lbs in two days. her lungs sound horrible and she has low O2 Sats." Triage Nursing Assessment: Pt verbally responsive, tachyniec with rhales noted in all lung escobedo. +2 pitting edema noted bilat in lower extremeties, pt cold to touch. PT normally aphasic but not making much eye contact. Physician History: PATIENT WITH A HISTORY OF CHRONIC ATRIAL FIBRILLATION, TYPE 2 DIABETES COMPLAINS OF SHORTNESS OF BREATH, HAS A 15 POUND WEIGHT GAIN OF EDEMA IN BOTH LEGS. DENIES COUGH, FEVER OR CHILLS. Timing/Duration: day(s) Severity of Dyspnea-Max: moderate Severity of Dyspnea-Current: moderate Possible Cause: occasional episodes Modifying Factors: Improves With: lying down Associated Symptoms: ankle swelling, leg swelling Allergies/Adverse Reactions: KERLINE Inhibitors Allergy (Verified 09/29/17 23:28) adhesive tape Allergy (Verified 09/29/17 23:28) atorvastatin [From Lipitor] Allergy (Verified 09/29/17 23:28) codeine Allergy (Verified 11/22/17 12:20) diphenhydramine Allergy (Verified 09/29/17 23:28) levofloxacin [From Levaquin] Allergy (Verified 09/29/17 23:28) meperidine Allergy (Verified 09/29/17 23:28) NSAIDS (Non-Steroidal Anti-Inflamma Allergy (Verified 09/29/17 23:28) Penicillins Allergy (Verified 09/29/17 23:28) simvastatin [From Zocor] Allergy (Verified 11/22/17 12:20) Home Medications: Acetaminophen 325 mg [Tylenol 325 mg] 650 mg PO Q4H PRN PRN 09/30/17 [ History] Docusate Sodium 100 mg [Colace 100 MG] 100 mg PO HS 09/30/17 [History] Donepezil HCl 10 mg [Aricept 10 MG] 10 mg PO DAILY 09/30/17 [History] Ferrous Sulfate 220 mg/5 ml [Ferrous Sulfate (IRON) 220 MG/5 ML] 5 ml PO DAILY 09/30/17 [History] Glucagon 1 mg [GlucaGen 1 MG] 1 mg IM UD PRN 09/30/17 [History] Insulin Aspart [Novolog Flexpen] 100 unit SQ UD 09/30/17 [History] Insulin Glargine,Hum.rec.anlog [Lantus Solostar] 40 unit SQ HS 09/30/17 [History ] Magnesium Hydroxide 30 ml [Milk of Magnesia 30 ml] 30 ml PO DAILY PRN PRN 09/30/17 [History] Omeprazole 20 mg PO DAILY 09/30/17 [History] Ondansetron HCl 4 mg PO Q6H PRN PRN 09/30/17 [History] Pravastatin Sodium 40 mg PO HS 09/30/17 [History] Sertraline HCl 100 mg PO DAILY 09/30/17 [History] Albuterol Sulfate 1.25 mg IH Q6H PRN 11/22/17 [History] Allopurinol 100 mg [Zyloprim 100 mg] 100 mg PO DAILY 11/22/17 [History] Carvedilol [Coreg] 6.25 mg PO DAILY 11/22/17 [History] Folic Acid 1 mg [Folate 1 mg] 1 mg PO DAILY 11/22/17 [History] Furosemide 20 mg [Lasix 20 mg] 20 mg PO BID 11/22/17 [History] Oseltamivir Phosphate [Tamiflu] 30 mg PO DAILY 11/22/17 [History] Hx Tetanus, Diphtheria Vaccination/Date Given: (unknown) Hx Influenza Vaccination/Date Given: (unknown) Hx Pneumococcal Vaccination/Date Given: (unknown) Immunizations Up to Date: (unknown) - Review of Systems Constitutional: No Fever, No Chills Eyes: No Symptoms Ears, Nose, & Throat: No Symptoms Respiratory: Dyspnea, No Cough Cardiac: No Symptoms, No Chest Pain, No Edema, No Syncope Abdominal/Gastrointestinal: No Symptoms, No Abdominal Pain, No Nausea, No Vomiting, No Diarrhea Genitourinary Symptoms: No Symptoms, No Dysuria Musculoskeletal: Other (LOWER EXTREMITY SWELLING), No Back Pain, No Neck Pain Skin: No Symptoms, No Rash Neurological: No Dizziness, No Focal Weakness, No Sensory Changes Psychological: No Symptoms Endocrine: No Symptoms All Other Systems: Reviewed and Negative - Past Medical History Pertinent Past Medical History: Yes Neurological History: Dementia, Stroke Cardiac History: Congestive Heart Failure, Hypertension Respiratory History: CHF, COPD, Other Endocrine Medical History: Diabetes Type I, Hypothyroidism Musculoskeletal History: No Pertinent History GI Medical History: GERD History: Other Other Medical History: Pt is a poor historian - Past Surgical History Past Surgical History: Yes Gastrointestinal: Bowel Surgery Female Surgical History: Hysterectomy Other Surgical History: tonsillectomy. Pt poor historian - Social History Smoking Status: Unknown if ever smoked Exposure to second hand smoke: No Drug Use: none Patient Lives Alone: No (miguel fraga) Significant Family History: no pertinent family hx - Nursing Vital Signs Nursing Vital Signs: Initial Vital Signs Temperature 95.3 F 11/22/17 11:59 Pulse Rate 100 H 11/22/17 11:59 Respiratory Rate 22 11/22/17 11:59 Blood Pressure 120/59 11/22/17 11:59 - Physical Exam General Appearance: mild distress Eye Exam: PERRL/EOMI Ears, Nose, Throat Exam: hearing grossly normal Neck Exam: normal inspection, non-tender Respiratory Exam: diminished breath sounds (NO WHEEZES OR RHONCHI OR RALES) Extremity Exam: pedal edema (2+ PITTING EDEMA FEET TO PROXIMAL SHINS) Peripheral Pulses Exam: carotid (R): 2+, carotid (L): 2+, femoral (R): 2+, femoral (L): 2+, dorsalis-pedis (R): 2+, dorsalis-pedis (L): 2+ Neurologic Exam: alert, other Skin Exam: normal color SpO2 Interpretation: normal SpO2: 100 Oxygen Delivery: Venti-Mask - Course EKG Interpreted by Me: RATE, A-fib, Left [place] Deviation, Other (FLAT T-WAVES AVL ,V3,V4) - Radiology Exams Chest X-ray Interpretation: Discussed w/ radiologist (UNDERINFLATED CHEST, REMAINING LUNGS CLEAR, CARDIOMEGALY) Ordered Tests: Active Orders 24 hr Category Date Time Status Bedrest ROUTINE Activity 11/22/17 16:14 Ordered Accucheck ACHS Care 11/22/17 16:14 Ordered Admission/Status Order ROUTINE Care 11/22/17 16:14 Ordered Cold Storage Worker STAT Care 11/22/17 12:05 Active Code Status Order ROUTINE Care 11/22/17 16:14 Ordered EKG-ER Only STAT Care 11/22/17 15:49 Active IV Care Q6H Care 11/22/17 16:14 Ordered IV Insertion STAT Care 11/22/17 12:04 Active Intake and Output 09,13,18,21 Care 11/22/17 16:14 Ordered Oxygen-ED Only VENTI-MASK 35% Care 11/22/17 12:04 Active Bin Hose, Apply ROUTINE Care 11/22/17 16:14 Ordered Vital Signs Q4H Care 11/22/17 16:14 Ordered Weight,Daily 0600 Care 11/22/17 16:14 Ordered 1800 Calorie ADA Diet 11/22/17 Breakfast Ordered CHEST 1 VIEW (PORTABLE) Stat Exams 11/22/17 12:04 Completed ABG [ARTERIAL BLOOD GASES] Stat Lab 11/22/17 12:11 Completed CBC W DIFF Stat Lab 11/22/17 12:15 Completed CMP Stat Lab 11/22/17 12:15 Completed Lactic Acid Stat Lab 11/22/17 12:11 Completed NT PRO BNP Stat Lab 11/22/17 12:15 Completed PROTIME WITH INR Stat Lab 11/22/17 12:15 Completed TROPONIN Q3H Lab 11/22/17 12:15 Completed TROPONIN Q3H Lab 11/22/17 15:40 Completed TROPONIN Q3H Lab 11/22/17 18:15 Ordered TROPONIN Q3H Lab 11/22/17 21:15 Ordered TROPONIN Q3H Lab 11/23/17 00:15 Ordered BiPap/CPAP Assessment STAT RT 11/22/17 13:13 Active Pulse Oximetry CONTINUOUS RT 11/22/17 16:17 Ordered Respiratory Therapy Consult ROUTINE RT 11/22/17 16:14 Ordered Transfer Order Routine Transfer 11/22/17 Ordered Medication Summary Generic Name Dose Route Start Last Admin Trade Name Freq PRN Reason Stop Dose Admin Albuterol/Ipratropium 3 ml 11/22/17 19:00 Duoneb 0.5-3 Mg/3 Ml Neb IH 12/22/17 18:59 Q4HRT KADNY Furosemide 20 mg 11/22/17 17:00 Lasix 20 Mg PO 12/22/17 16:59 BID DIURETIC KANDY Sodium Chloride 1,000 mls @ 500 mls/hr 11/22/17 15:15 11/22/17 15:24 Sodium Chloride 0.9% 1000 Ml IV 11/22/17 17:14 500 mls/hr .Q2H STA Administration Sodium Chloride 1,000 mls @ 50 mls/hr 11/22/17 16:15 Sodium Chloride 0.9% 1000 Ml IV 12/22/17 16:14 .Q20H KANDY Insulin Aspart 0 unit 11/22/17 16:14 Novolog Insulin SQ 12/22/17 16:13 UD PRN HYPERGLYCEMIA Levothyroxine Sodium 150 mcg 11/23/17 10:00 Synthroid 150 Mcg PO 12/23/17 09:59 QAM KANDY Potassium Chloride 40 meq 11/23/17 10:00 Potassium Chl 40 Meq/30 Ml Oral Solution PO 12/23/17 09:59 DAILY KANDY Discontinued Medications Generic Name Dose Route Start Last Admin Trade Name Freq PRN Reason Stop Dose Admin Bumetanide 2 mg 11/22/17 12:12 11/22/17 12:26 Bumex 1 Mg IV 11/22/17 12:13 2 mg STAT STA Administration Bumetanide Confirm 11/22/17 12:25 Bumex 1 Mg Administered 11/22/17 12:26 Dose 1 mg .ROUTE .STK-MED ONE Bumetanide Confirm 11/22/17 12:26 Bumex 1 Mg Administered 11/22/17 12:27 Dose 1 mg .ROUTE .STK-MED ONE Sodium Chloride Confirm 11/22/17 15:22 Sodium Chloride 0.9% 1000 Ml Administered 11/22/17 15:23 Dose 1,000 mls @ ud .ROUTE .STK-MED ONE Ondansetron HCl 4 mg 11/22/17 16:22 Zofran 4 Mg/2 Ml Vial IV 11/22/17 16:23 STAT ONE Lab/Rad Data: Laboratory Result Diagrams 11/22/17 12:15 11/22/17 12:15 Laboratory Results 11/22/17 11/22/17 11/22/17 Range/Units 15:40 12:15 12:15 WBC (4.0-10.5) K/mm3 RBC (4.1-5.4) M/mm3 Hgb (12.0-16.0) gm/dl Hct (35-47) % MCV (78-100) fl MCH (26-32) pg MCHC (32-36) g/dl RDW (11.5-14.0) % Plt Count (150-450) K/mm3 MPV (6-9.5) fl Gran % (36.0-66.0) % Lymphocytes % (24.0-44.0) % Monocytes % (0.0-12.0) % Eosinophils % (0.00-5.0) % Basophils % (0.0-0.4) % Basophils # (0-0.4) INR 3.81 H (0.8-3.0) Puncture Site pCO2 (35-45) mmHg pO2 (75-100) mmHg Base Excess (-2.0-2.0) O2 Saturation (94-100) g/dF ABG pH (7.35-7.45) ABG HCO3 (22-28) ABG O2 Sat (Measured) (95-100) % Blaze Test A-a Gradient a/A Ratio Hemoglobin Carboxyhemoglobin (0.0-6.9) % THgb Methemoglobin (1.4-1.5) % Potassium (3.5-5.1) Temperature C POC O2 Flow Rate % Sodium (136-145) mEq/L Chloride (98-107) mEq/L Carbon Dioxide (21-32) mEq/L Anion Gap (5-15) MEQ/L BUN (9-20) mg/dL Creatinine (0.55-1.30) mg/dl Estimated GFR ML/MIN Glucose (70-110) MG/DL Lactic Acid (0.4-2.0) Calcium (8.5-10.1) mg/dL Total Bilirubin (0.2-1.0) mg/dL AST (15-37) U/L ALT (12-78) U/L Alkaline Phosphatase (46-116) U/L Troponin I 0.022 0.021 (0.000-0.056) ng/ml NT-Pro-B Natriuret Pep (0-450) pg/ml Serum Total Protein (6.4-8.2) gm/dL Albumin (3.4-5.0) g/dL 11/22/17 11/22/17 11/22/17 Range/Units 12:15 12:15 12:11 WBC 9.5 (4.0-10.5) K/mm3 RBC 3.71 L (4.1-5.4) M/mm3 Hgb 11.2 L (12.0-16.0) gm/dl Hct 37.6 (35-47) % MCV 101.3 H (78-100) fl MCH 30.1 (26-32) pg MCHC 29.8 L (32-36) g/dl RDW 15.8 H (11.5-14.0) % Plt Count 204 (150-450) K/mm3 MPV 12.3 H (6-9.5) fl Gran % 68.7 H (36.0-66.0) % Lymphocytes % 18.5 L (24.0-44.0) % Monocytes % 9.1 (0.0-12.0) % Eosinophils % 3.4 (0.00-5.0) % Basophils % 0.3 (0.0-0.4) % Basophils # 0.03 (0-0.4) INR (0.8-3.0) Puncture Site RIGHT RADIAL pCO2 87 H* (35-45) mmHg pO2 330 H* (75-100) mmHg Base Excess 6.2 H (-2.0-2.0) O2 Saturation 97.4 (94-100) g/dF ABG pH 7.23 L* (7.35-7.45) ABG HCO3 36.4 H* (22-28) ABG O2 Sat (Measured) 100.3 H (95-100) % Blaze Test YES A-a Gradient 274 a/A Ratio 0.55 Hemoglobin 11.9 Carboxyhemoglobin 2.1 (0.0-6.9) % THgb Methemoglobin 0.7 L (1.4-1.5) % Potassium 4.6 4.6 (3.5-5.1) Temperature 37.0 C POC O2 Flow Rate 100 % Sodium 144 (136-145) mEq/L Chloride 107 (98-107) mEq/L Carbon Dioxide 33.0 H (21-32) mEq/L Anion Gap 8.5 (5-15) MEQ/L BUN 29 H (9-20) mg/dL Creatinine 1.59 H (0.55-1.30) mg/dl Estimated GFR 33 ML/MIN Glucose 178 H (70-110) MG/DL Lactic Acid 1.0 (0.4-2.0) Calcium 8.7 (8.5-10.1) mg/dL Total Bilirubin 0.10 L (0.2-1.0) mg/dL AST 18 (15-37) U/L ALT 11 L (12-78) U/L Alkaline Phosphatase 98 (46-116) U/L Troponin I (0.000-0.056) ng/ml NT-Pro-B Natriuret Pep 93395 H (0-450) pg/ml Serum Total Protein 7.4 (6.4-8.2) gm/dL Albumin 1.9 L (3.4-5.0) g/dL - Progress Progress: re-examined, unchanged Progress Note: 11/22/17 16:00 ADMINISTERED BUMEX 2MG IV, DIURESIS 400ML, PLACED ONTO BIPAP FOR ABG PH-7.23/PCO -87/PO2-330/HCO3-36 02 SAT 100% 11/22/17 16:07 Discuss[address] with DrVania: Usha (DISCUSSED WITH DR COWAN AT 1530 FOR ADMISSION) - Departure Time of Disposition: 16:15 Departure Disposition: Observation Clinical Impression: ACUTE DYSPNEA, HYPERCAPNIA Condition: Stable Critical Care Time: No Referrals: BUSHRA FRAGA [Primary Care Provider] -
[2017-11-22] MEDS ORDERED: Sodium Chloride 0.9% 1000 ML 1,000 ML IV STA (15:15)
[2017-11-22] MEDS ORDERED: Sodium Chloride 0.9% 1000 ML 1,000 ML ONE (15:22)
[2017-11-22] MEDS ORDERED: NovoLOG Insulin SQ PRN (16:14)
[2017-11-22] MEDS ORDERED: Sodium Chloride 0.9% 1000 ML 1,000 ML IV SCH (16:15)
[2017-11-22] MEDS ORDERED: Zofran 4 MG/2 ML VIAL IV ONE (16:22)
[2017-11-22] MEDS ORDERED: LASIX 20 MG PO SCH (17:00)
--- NOTE | 2017-11-22 17:52 | PCM.HP ---
History of Present Illness - Chief Complaint Chief Complaint: ACUTE DYSPNEA Date: 11/22/17 History of Present Illness: is a 82 year old female. who is living at [facility] and developed increased respiratory difficulty and wheezing yesterday. She had been having hypoglycemic episodes earlier in the week. She was then today found difficulty to get a response with apneic episodes and hypothermia and desaturations. She was evaluated in ED and found to have difficult to arouse and hypercapneic. She was given bumex then a iv fluid bolus by the ED physician then I was called for admission. BIpap was started at that time. On her arrival to the floor she was responsive to painful stimuli and suctioning of some thick bloody mucous from her nares. She replied no but otherwise not answering questions. She was cold with rectal temperature of 95%. She was having shallow breathing with coarse upper respiratory sounds. - Review of Systems Constitutional: Other (unable to obtain secondary to mental status) Medications & Allergies Home Medications: Home Medication List Acetaminophen 325 mg [Tylenol 325 mg] 650 mg PO Q4H PRN PRN 09/30/17 [ History Confirmed 11/22/17] Docusate Sodium 100 mg [Colace 100 MG] 100 mg PO HS 09/30/17 [History Confirmed 11/22/17] Donepezil HCl 10 mg [Aricept 10 MG] 10 mg PO DAILY 09/30/17 [History Confirmed 11/22/17] Ferrous Sulfate 220 mg/5 ml [Ferrous Sulfate (IRON) 220 MG/5 ML] 5 ml PO DAILY 09/30/17 [History Confirmed 11/22/17] Glucagon 1 mg [GlucaGen 1 MG] 1 mg IM UD PRN 09/30/17 [History Confirmed 11/22/17] Insulin Aspart [Novolog Flexpen] 100 unit SQ UD 09/30/17 [History Confirmed 10/28] Insulin Glargine,Hum.rec.anlog [Lantus Solostar] 40 unit SQ HS 09/30/17 [ History Confirmed 11/22/17] Magnesium Hydroxide 30 ml [Milk of Magnesia 30 ml] 30 ml PO DAILY PRN PRN 09/30/17 [History Confirmed 11/22/17] Omeprazole 20 mg PO DAILY 09/30/17 [History Confirmed 11/22/17] Ondansetron HCl 4 mg PO Q6H PRN PRN 09/30/17 [History Confirmed 11/22/17] Pravastatin Sodium 40 mg PO HS 09/30/17 [History Confirmed 11/22/17] Sertraline HCl 100 mg PO DAILY 09/30/17 [History Confirmed 11/22/17] Levothyroxine Sodium 150 Mcg [Synthroid 150 Mcg] 150 mcg PO DAILY #30 tablet 10/03/17 [Rx Confirmed 11/22/17] Magnesium Oxide 400 mg [Mag-Ox 400] 400 mg PO DAILY #30 tablet 10/03/17 [ Rx Confirmed 11/22/17] Potassium Chl 40 Meq Oral Kymberly* [Potassium Chl 40 Meq/30 ml Oral Solution] 40 meq PO DAILY #30 udcup 10/03/17 [Rx Confirmed 11/22/17] Warfarin Sodium 1 mg [Coumadin 1 MG] 1 mg PO DAILY #30 tablet 10/03/17 [ Rx Confirmed 11/22/17] Albuterol Sulfate 1.25 mg IH Q6H PRN 11/22/17 [History Confirmed 11/22/17] Allopurinol 100 mg [Zyloprim 100 mg] 100 mg PO DAILY 11/22/17 [History Confirmed 11/22/17] Carvedilol [Coreg] 6.25 mg PO DAILY 11/22/17 [History Confirmed 11/22/17] Folic Acid 1 mg [Folate 1 mg] 1 mg PO DAILY 11/22/17 [History Confirmed ] Furosemide 20 mg [Lasix 20 mg] 20 mg PO BID 11/22/17 [History Confirmed ] Oseltamivir Phosphate [Tamiflu] 30 mg PO DAILY 11/22/17 [History Confirmed 11/22] Allergies/Adverse Reactions: Allergies Allergy/AdvReac Type Severity Reaction Status Date / Time KERLINE Inhibitors Allergy Verified 09/29/17 23:28 adhesive tape Allergy Verified 09/29/17 23:28 atorvastatin [From Lipitor] Allergy Verified 09/29/17 23:28 codeine Allergy Verified 11/22/17 12:20 diphenhydramine Allergy Verified 09/29/17 23:28 levofloxacin [From Levaquin] Allergy Verified 09/29/17 23:28 meperidine Allergy Verified 09/29/17 23:28 NSAIDS (Non-Steroidal Allergy Verified 09/29/17 23:28 Anti-Inflamma Penicillins Allergy Verified 09/29/17 23:28 simvastatin [From Zocor] Allergy Verified 11/22/17 12:20 - Past Medical History Past Medical History: Yes Neurological History: Dementia, Stroke Cardiac History: Congestive Heart Failure, Hypertension CARDIAC HISTORY: Arrhythmia (chronic atrial fibrillation) Respiratory History: CHF, COPD, Other Endocrine Medical History: Diabetes Type I, Hypothyroidism Musculoskelatal History: No Pertinent History GI Medical History: GERD History: Other Comment: Pt is a poor historian - Past Surgical History Past Surgical History: Yes GI Surgical History: Bowel Surgery Female Surgical History: Hysterectomy Other Surgical History: tonsillectomy. Pt poor historian - Social History Smoking Status: Unknown if ever smoked Exposure to second hand smoke: No Alcohol: None Drug Use: none Significant Family History: no pertinent family hx - Physical Exam Vital Signs: Vital Signs - 24 hr Temp Pulse Resp BP Pulse Ox 11/22/17 16:47 97.2 F 78 20 155/84 11/22/17 16:24 100 11/22/17 14:37 85 20 106/88 96 11/22/17 13:27 86 20 115/40 94 L 11/22/17 12:22 95.3 F 94 H 24 120/59 100 11/22/17 11:59 95.3 F 100 H 22 120/59 Oxygen-Last 24 hours O2 Percentage 35% O2 Percentage 35% O2 Percentage 100% General Appearance: moderate distress, obese, No alert Neurologic Exam: other (moving all extremities to painful stimuli has contracture of the left arm chronically extra occular movements intact and pupils equal bilateral) Eye Exam: PERRL/EOMI, eyes nml inspection Ears, Nose, Throat Exam: dry mucous membranes Neck Exam: normal inspection, non-tender, supple, full range of motion Respiratory Exam: respiratory distress (poor airmovment with coarse upper respiratory gurgling) Cardiovascular Exam: other (distant heart sounds tachycardia at 110 with irregular heart rate) Gastrointestinal/Abdomen Exam: soft, normal bowel sounds, No tenderness, No mass Back Exam: normal inspection Extremity Exam: other (diffuse pitting edema bilateral lower extremities cool extremities) Skin Exam: dry, other (cool), No rash Lymphatic Exam: No adenopathy Assessment/Plan (1) Acute hypercapnic respiratory failure Current Visit: Yes Status: Acute Assessment & Plan: the chest xray is portable and of very poor quality with her current critical illness will avoid repeat at this time unless decompenasation and consider repeat in am vs CT and work on optimization of therapy and stabilization She does not have difficulty oxygenating it appears but is having apneic episodes and poor inspiratory effort and shallow breathing. Will continue the bipap. given her hx of aspiration and dysphagia will cover for aspiration with zosyn also add methyprednisolone she received bumetanide in ED but then was given a NS bolus it appears about 800 mL. she is currently cold and being placed on warmer and is being moved to icu bipap is restarted at 12/6 oxygenation appears adequate telemetry repeat blood gas 1 - 2 hour after bipap in place INR is supratherapuetic currently. continue lantus and use high dose sliding scale insulin The family has been updated by Charge nurse Josey on the severity of her condition and given her comorbidites guarded overall prognosis and confirmed the patients wishes as no code blue. no intubation no cpr. Code(s): J96.02 - ACUTE RESPIRATORY FAILURE WITH HYPERCAPNIA (2) Hypothermia Current Visit: Yes Status: Acute Code(s): T68.XXXA - HYPOTHERMIA, INITIAL ENCOUNTER (3) Metabolic encephalopathy Current Visit: Yes Status: Acute Code(s): G93.41 - METABOLIC ENCEPHALOPATHY (4) CKD (chronic kidney disease) Current Visit: Yes Status: Chronic Code(s): N18.9 - CHRONIC KIDNEY DISEASE, UNSPECIFIED (5) Type 2 diabetes mellitus Current Visit: Yes Status: Chronic (6) Atrial fibrillation Current Visit: Yes Status: Chronic Qualifiers: Atrial fibrillation type: chronic Qualified Code(s): I48.2 - Chronic atrial fibrillation Code(s): I48.91 - UNSPECIFIED ATRIAL FIBRILLATION
[2017-11-22 18:28] LABS: A-aADO2 68; ABG HEMOGLOBIN 11.4; ABG POTASSIUM 4.2 (3.5-5.1); ARTERIAL BLD GAS O2 SATURATION 99.1 % (95-100); ARTERIAL BLOOD GAS BASE EXCESS 7.5 (-2.0-2.0); ARTERIAL BLOOD GAS FIO2 40 %; ARTERIAL BLOOD GAS PO2 131 mmHg (75-100); ARTERIAL BLOOD GAS VENT MODE BiPAP; ARTERIAL BLOOD GAS pH 7.32 (7.35-7.45); CARBOXYHEMOGLOBIN 2.4 % THgb (0.0-6.9); HCO3- 35.6 (22-28); HGB O2 SAT 95.4 g/dF (94-100); Methhemoglobin 1.3 % (1.4-1.5); paO2 pAO1 0.66
[2017-11-22 18:29] LABS: ARTERIAL BLOOD GAS PCO2 69 mmHg (35-45)
[2017-11-22] MEDS: solu-MEDROL 40 MG IV SCH (18:50)
[2017-11-22] MEDS ORDERED: Zosyn 2.25 GM IV ONE (18:52)
[2017-11-22] MEDS ORDERED: DUONEB 0.5-3 MG/3 ml Neb IH SCH (19:00)
[2017-11-22] MEDS: Zosyn 2.25 GM 2.25 GM in D5w 100ML Mini Bag 100 ML 100 ML IV SCH (19:01)
[2017-11-22 19:31] LABS: ABG SITE rr; ALLEN TEST OK? y
[2017-11-22] MEDS: PROVENTIL 2.5 MG/3 ML NEB IH PRN (21:13)
[2017-11-23] MEDS ORDERED: Zosyn 2.25 GM IV ONE (00:18)
[2017-11-23] MEDS: Zosyn 2.25 GM 2.25 GM in D5w 100ML Mini Bag 100 ML 100 ML IV SCH ×2 (00:18→07:30)
[2017-11-23] MEDS: solu-MEDROL 40 MG IV SCH ×3 (02:20→17:06)
[2017-11-23] MEDS ORDERED: LOPRESSOR 5 MG/5 ML INJECTION IV ONE (05:41)
[2017-11-23 06:31] LABS: BASOPHIL % 0.1 % (0.0-0.4); Basophil (Absolute #) 0.01 (0-0.4); Eosinophil % 0.1 % (0.00-5.0); Eosinophil (Absolute #) 0.01 (0-0.5); Granulocyte Absolute (ANC) 10.15 (1.4-6.9); Granulocytes % 92.5 % (36.0-66.0); Hematocrit 37.5 % (35-47); Hemoglobin 10.9 gm/dl (12.0-16.0); Lymphocyte (Absolute #) 0.75 (1.0-4.6); Lymphocytes % 6.8 % (24.0-44.0); Mean Cell Volume 103.6 fl (78-100); Mean Corpuscular Hemoglobin 30.1 pg (26-32); Mean Corpuscular Hgb Concent. 29.1 g/dl (32-36); Mean Platelet Volume 13.4 fl (6-9.5); Monocyte (Absolute #) 0.05 (0.0-1.3); Monocytes % 0.5 % (0.0-12.0); Platelet Count 198 K/mm3 (150-450); Red Blood Count 3.62 M/mm3 (4.1-5.4); Red Cell Distribution Width 15.6 % (11.5-14.0)
[2017-11-23 06:33] LABS: INR 4.15 (0.8-3.0)
[2017-11-23 06:45] LABS: ALBUMIN 1.9 g/dL (3.4-5.0); ANION GAP 9.2 MEQ/L (5-15); BILIRUBIN,TOTAL 0.2 mg/dL (0.2-1.0); Calcium 8.6 mg/dL (8.5-10.1); Carbon Dioxide 33.9 mEq/L (21-32); Creatinine 1 1.7 mg/dl (0.55-1.30); Potassium 5.3 mEq/L (3.5-5.1); Total Protein 7.3 gm/dL (6.4-8.2)
[2017-11-23] MEDS ORDERED: TYLENOL 325 MG PO PRN (07:39)
--- NOTE | 2017-11-23 08:13 | PCM.NOTE ---
Date and Time: 11/23/17804 Subjective Assessment: she has had shivering since this am. there was some concern over possible small seizure activity with some posturing early this am. She moans intermittently and open eyes but no significant communication. She had spikes in her heart rate early this am around 05:00 and was given metoprolol IV 5mg that improved it back down to around 120's currently the shivering prevents accurate case picker on the telemetry Objective Exam General Appearance: moderate distress, obese Neurologic Exam: other (shivering on exam moans intermittently and opens eyes intermittently to voice. 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 stroke), No alert, No oriented x 3 Skin Exam: dry, pale Eye Exam: pale conjunctivae, No scleral icterus Ears, Nose, Throat Exam: dry mucous membranes Neck Exam: non-tender, supple Respiratory Exam: wheezing, other (obesity limits exam), No crackles/rales Cardiovascular Exam: other (with the wheezing and obesity heart sounds very distant) Gastrointestinal/Abdomen Exam: soft, normal bowel sounds, No tenderness Extremity Exam: other (diffuse pitting edema bilateral hands and legs) OBJECTIVE DATA Vital Signs: Vital Signs - 24 hr Temp Pulse Resp BP Pulse Ox 11/23/17 07:50 98.5 F 118 H 26 H 165/134 94 L 11/23/17 04:00 99.2 F 138 H 19 129/87 92 L 11/23/17 00:00 99.3 F 116 H 23 90/81 93 L 11/22/17 21:18 97 H 22 93 L 11/22/17 20:00 96.0 F 66 30 H 170/150 11/22/17 19:32 96.0 F 66 30 H 170/150 11/22/17 18:18 97.5 F 123 H 18 11/22/17 16:47 97.2 F 78 20 155/84 11/22/17 16:24 100 11/22/17 14:37 85 20 106/88 96 11/22/17 13:27 86 20 115/40 94 L 11/22/17 12:22 95.3 F 94 H 24 120/59 100 11/22/17 11:59 95.3 F 100 H 22 120/59 Oxygen-Last 24 hours O2 Percentage 60% O2 Percentage 60% O2 Percentage 60% O2 Percentage 5 Liters = 40% O2 Percentage 5 Liters = 40% O2 Percentage 35% O2 Percentage 35% O2 Percentage 100% Pain Assessment - Last Documented Pain Intensity 0 Pain Scale Used Mckenzie-Chaudhary Faces Intake and Output: Intake & Output 11/20/17 11/21/17 11/22/17 11/23/17 11:59 11:59 11:59 11:59 Intake Total 0 Output Total 550 Balance -550 Weight 113.7 kg Lab Results: Lab Results-Last 24 Hours 11/22/17 11/22/17 11/22/17 Range/Units 18:20 18:24 21:24 WBC (4.0-10.5) K/mm3 RBC (4.1-5.4) M/mm3 Hgb (12.0-16.0) gm/dl Hct (35-47) % MCV (78-100) fl MCH (26-32) pg MCHC (32-36) g/dl RDW (11.5-14.0) % Plt Count (150-450) K/mm3 MPV (6-9.5) fl Gran % (36.0-66.0) % Lymphocytes % (24.0-44.0) % Monocytes % (0.0-12.0) % Eosinophils % (0.00-5.0) % Basophils % (0.0-0.4) % Basophils # (0-0.4) INR (0.8-3.0) Puncture Site rr pCO2 69 H* (35-45) mmHg pO2 131 H* (75-100) mmHg Base Excess 7.5 H (-2.0-2.0) O2 Saturation 95.4 (94-100) g/dF ABG pH 7.32 L (7.35-7.45) ABG HCO3 35.6 H* (22-28) ABG O2 Sat (Measured) 99.1 (95-100) % Blaze Test y A-a Gradient 68 a/A Ratio 0.66 Hemoglobin 11.4 Carboxyhemoglobin 2.4 (0.0-6.9) % THgb Methemoglobin 1.3 L (1.4-1.5) % Potassium 4.2 (3.5-5.1) Temperature 37.0 C POC O2 Flow Rate 40 % Vent Mode BiPAP Inspiratory BiPAP 12 Expiratory BiPAP 6 Sodium (136-145) mEq/L Chloride (98-107) mEq/L Carbon Dioxide (21-32) mEq/L Anion Gap (5-15) MEQ/L BUN (9-20) mg/dL Creatinine (0.55-1.30) mg/dl Estimated GFR ML/MIN Glucose (70-110) MG/DL Calcium (8.5-10.1) mg/dL Magnesium (1.8-2.4) mg/dL Total Bilirubin (0.2-1.0) mg/dL AST (15-37) U/L ALT (12-78) U/L Alkaline Phosphatase (46-116) U/L Troponin I 0.020 0.018 (0.000-0.056) ng/ml Serum Total Protein (6.4-8.2) gm/dL Albumin (3.4-5.0) g/dL 11/23/17 11/23/17 11/23/17 Range/Units 00:24 05:10 05:10 WBC 11.0 H (4.0-10.5) K/mm3 RBC 3.62 L (4.1-5.4) M/mm3 Hgb 10.9 L (12.0-16.0) gm/dl Hct 37.5 (35-47) % MCV 103.6 H (78-100) fl MCH 30.1 (26-32) pg MCHC 29.1 L (32-36) g/dl RDW 15.6 H (11.5-14.0) % Plt Count 198 (150-450) K/mm3 MPV 13.4 H (6-9.5) fl Gran % 92.5 H (36.0-66.0) % Lymphocytes % 6.8 L (24.0-44.0) % Monocytes % 0.5 (0.0-12.0) % Eosinophils % 0.1 (0.00-5.0) % Basophils % 0.1 (0.0-0.4) % Basophils # 0.01 (0-0.4) INR (0.8-3.0) Puncture Site pCO2 (35-45) mmHg pO2 (75-100) mmHg Base Excess (-2.0-2.0) O2 Saturation (94-100) g/dF ABG pH (7.35-7.45) ABG HCO3 (22-28) ABG O2 Sat (Measured) (95-100) % Blaze Test A-a Gradient a/A Ratio Hemoglobin Carboxyhemoglobin (0.0-6.9) % THgb Methemoglobin (1.4-1.5) % Potassium 5.3 H (3.5-5.1) Temperature C POC O2 Flow Rate % Vent Mode Inspiratory BiPAP Expiratory BiPAP Sodium 145 (136-145) mEq/L Chloride 107 (98-107) mEq/L Carbon Dioxide 33.9 H (21-32) mEq/L Anion Gap 9.2 (5-15) MEQ/L BUN 30 H (9-20) mg/dL Creatinine 1.70 H (0.55-1.30) mg/dl Estimated GFR 31 ML/MIN Glucose 190 H (70-110) MG/DL Calcium 8.6 (8.5-10.1) mg/dL Magnesium (1.8-2.4) mg/dL Total Bilirubin 0.20 (0.2-1.0) mg/dL AST 16 (15-37) U/L ALT 12 (12-78) U/L Alkaline Phosphatase 94 (46-116) U/L Troponin I < 0.017 (0.000-0.056) ng/ml Serum Total Protein 7.3 (6.4-8.2) gm/dL Albumin 1.9 L (3.4-5.0) g/dL 11/23/17 11/23/17 Range/Units 05:10 05:10 WBC (4.0-10.5) K/mm3 RBC (4.1-5.4) M/mm3 Hgb (12.0-16.0) gm/dl Hct (35-47) % MCV (78-100) fl MCH (26-32) pg MCHC (32-36) g/dl RDW (11.5-14.0) % Plt Count (150-450) K/mm3 MPV (6-9.5) fl Gran % (36.0-66.0) % Lymphocytes % (24.0-44.0) % Monocytes % (0.0-12.0) % Eosinophils % (0.00-5.0) % Basophils % (0.0-0.4) % Basophils # (0-0.4) INR 4.15 H (0.8-3.0) Puncture Site pCO2 (35-45) mmHg pO2 (75-100) mmHg Base Excess (-2.0-2.0) O2 Saturation (94-100) g/dF ABG pH (7.35-7.45) ABG HCO3 (22-28) ABG O2 Sat (Measured) (95-100) % Blaze Test A-a Gradient a/A Ratio Hemoglobin Carboxyhemoglobin (0.0-6.9) % THgb Methemoglobin (1.4-1.5) % Potassium (3.5-5.1) Temperature C POC O2 Flow Rate % Vent Mode Inspiratory BiPAP Expiratory BiPAP Sodium (136-145) mEq/L Chloride (98-107) mEq/L Carbon Dioxide (21-32) mEq/L Anion Gap (5-15) MEQ/L BUN (9-20) mg/dL Creatinine (0.55-1.30) mg/dl Estimated GFR ML/MIN Glucose (70-110) MG/DL Calcium (8.5-10.1) mg/dL Magnesium 2.2 (1.8-2.4) mg/dL Total Bilirubin (0.2-1.0) mg/dL AST (15-37) U/L ALT (12-78) U/L Alkaline Phosphatase (46-116) U/L Troponin I (0.000-0.056) ng/ml Serum Total Protein (6.4-8.2) gm/dL Albumin (3.4-5.0) g/dL Assessment/Plan (1) Metabolic encephalopathy Current Visit: Yes Status: Acute Assessment & Plan: she was having some brief periods of posturing given the apnea spells will go ahead and start keppra iv dose now with her previous hx of stroke possible seizures now. She is moving more air today with diffuse wheezing and a little more alert opens eyes briefly and moans. She is shivering on exam today. will continue the zosyn for empiric coverage of possible aspiration with also concern for health care associated infection. She had poor response to the bumex and has significant right sided heart failure and edema without significant pulmonary edema found on exam. with her acute kidney injury will avoid further fluids with the diastolic heart failure but avoid diuretics as well at this point. She has afib with rvr and had some response to a single dose of iv metoprolol when shivering improved if rate consistently above 110 will consider trial of cardizem concern with her heart failure for exacerbation with this but it has preserved EF on last echo from [facility]. Her INR remains supratherapeutic If respiratory and heart rate stabilize will consider sending for CT head rule out bleed or new large stroke. right now concern transfer may cause more destabilization in her condition. Continue bipap for now Will keep her family updated with her poor prognosis multisystem organ failure and consideration to switch to comfort measures given her baseline dementia and co morbidities. Code(s): G93.41 - METABOLIC ENCEPHALOPATHY (2) Acute hypercapnic respiratory failure Current Visit: Yes Status: Acute Code(s): J96.02 - ACUTE RESPIRATORY FAILURE WITH HYPERCAPNIA (3) Hypothermia Current Visit: Yes Status: Acute Code(s): T68.XXXA - HYPOTHERMIA, INITIAL ENCOUNTER (4) CKD (chronic kidney disease) Current Visit: Yes Status: Chronic Code(s): N18.9 - CHRONIC KIDNEY DISEASE, UNSPECIFIED (5) Type 2 diabetes mellitus Current Visit: Yes Status: Chronic (6) Atrial fibrillation with rapid ventricular response Current Visit: Yes Status: Acute Code(s): I48.91 - UNSPECIFIED ATRIAL FIBRILLATION (7) Acute kidney injury Current Visit: Yes Status: Acute Code(s): N17.9 - ACUTE KIDNEY FAILURE, UNSPECIFIED (8) Dementia Current Visit: Yes Status: Acute Code(s): F03.90 - UNSPECIFIED DEMENTIA WITHOUT BEHAVIORAL DISTURBANCE
[2017-11-23] MEDS ORDERED: CARDIZEM DRIP 100 MG/100 ML D5W 100 ML IV PRN (08:23)
[2017-11-23] MEDS ORDERED: Keppra 500 MG/5 ML*** 500 MG in D5w 100ML Mini Bag 100 ML 100 ML IV ONE (08:30)
[2017-11-23] MEDS: MERREM 500MG 500 MG in Sodium Chloride 100ML MINI-BAG PLUS 100 ML IV SCH (09:00)
[2017-11-23] MEDS ORDERED: POTASSIUM CHLORIDE 20 MEQ POWDER FOR ORAL SOL PO SCH (10:00)
[2017-11-23] MEDS ORDERED: NON-FORMULARY ITEM (Sertraline Hcl [Sertraline Hcl] 100 MG) PO SCH (10:00)
[2017-11-23] MEDS ORDERED: SYNTHROID 150 MCG PO SCH (10:00)
[2017-11-23] MEDS: Coreg 6.25 MG PO SCH ×2 (10:18→21:32)
[2017-11-23] MEDS: Aricept 10 MG PO SCH (10:18)
[2017-11-23] MEDS: MAG-OX 400 PO SCH (10:19)
[2017-11-23] MEDS: FOLATE 1 MG PO SCH (10:19)
[2017-11-23] MEDS: ZOLOFT 50 MG TABLET PO SCH (10:19)
[2017-11-23] MEDS: ZYLOPRIM 100 MG PO SCH (10:19)
[2017-11-23] MEDS: SYNTHROID 100 MCG PO SCH (10:19)
[2017-11-23] MEDS: Colace 100 MG PO SCH (21:32)
[2017-11-23] MEDS: KEPPRA 500 MG PO SCH (21:33)
[2017-11-23] MEDS: PRAVASTATIN SODIUM PO SCH (21:34)
[2017-11-23] MEDS ORDERED: NON-FORMULARY ITEM (Pravastatin Sodium [Pravastatin Sodium] 40 MG) PO SCH (22:00)
[2017-11-23] MEDS ORDERED: INSULIN GLARGINE HUM REC ANLOG 30 UNIT SQ SCH (22:00)
[2017-11-23] MEDS: Lantus Insulin SQ SCH (22:33)
[2017-11-23] MEDS: NovoLOG Insulin SQ PRN (22:34)
[2017-11-24] MEDS: MERREM 500MG 500 MG in Sodium Chloride 100ML MINI-BAG PLUS 100 ML IV SCH ×3 (00:18→21:47)
[2017-11-24] MEDS: solu-MEDROL 40 MG IV SCH ×3 (02:14→16:48)
[2017-11-24 04:42] LABS: VBG BASE EXCESS 9.7 (-2.0-2.0); VBG CARBOXYHEMOGLOBIN 2.7 % T HGB (0.0-6.9); VBG HCO3- 37.5 meq/L (22-28); VBG HEMOGLOBIN 11.1; VBG POTASSIUM 5.2 (3.5-5.1); VBG pH 7.35 (7.32-7.42)
[2017-11-24 05:39] LABS: ANION GAP 8.8 MEQ/L (5-15); BILIRUBIN,TOTAL 0.1 mg/dL (0.2-1.0); Calcium 8.9 mg/dL (8.5-10.1); Carbon Dioxide 35.4 mEq/L (21-32); Creatinine 1 2.2 mg/dl (0.55-1.30); Total Protein 7.3 gm/dL (6.4-8.2)
[2017-11-24 05:42] LABS: BASOPHIL % 0.1 % (0.0-0.4); Basophil (Absolute #) 0.01 (0-0.4); Eosinophil (Absolute #) 0 (0-0.5); Granulocytes % 87.2 % (36.0-66.0); Hematocrit 35.9 % (35-47); Hemoglobin 10.4 gm/dl (12.0-16.0); Lymphocyte (Absolute #) 0.91 (1.0-4.6); Lymphocytes % 8.8 % (24.0-44.0); Mean Cell Volume 102.9 fl (78-100); Mean Platelet Volume 13.4 fl (6-9.5); Monocytes % 3.9 % (0.0-12.0); Platelet Count 197 K/mm3 (150-450); Red Blood Count 3.49 M/mm3 (4.1-5.4); Red Cell Distribution Width 15.8 % (11.5-14.0); White Blood Count 10.3 K/mm3 (4.0-10.5)
[2017-11-24 05:43] LABS: Mean Corpuscular Hemoglobin 29.7 pg (26-32)
[2017-11-24 06:00] LABS: INR 5.73 (0.8-3.0)
--- NOTE | 2017-11-24 09:09 | PCM.NOTE ---
Date and Time: 11/24/17 0904 Subjective Assessment: more alert today yellowing out but refusing eating or drinking agitated at times. Still with shivering that is chronic has not eaten or drank anything yet. She had cardizem gtt stopped at 03:00 for ? of low bp. She has tolerated the nasal canule Objective Exam General Appearance: obese Neurologic Exam: alert, other (dysarthria limits history taking she is following simple commands mumbling which is chronic after a previous stroke but usually she is able to use a few more words then she can right now. left hand chronic contracture), No oriented x 3 Skin Exam: warm, dry, other (poor skin turgor today) Ears, Nose, Throat Exam: dry mucous membranes Neck Exam: non-tender, supple Respiratory Exam: diminished breath sounds, prolonged expirations, rhonchi, wheezing Cardiovascular Exam: tachycardia, irregular, edema Gastrointestinal/Abdomen Exam: soft, normal bowel sounds, other (obesity limits exam), No tenderness, No distention OBJECTIVE DATA Vital Signs: Vital Signs - 24 hr Temp Pulse Resp BP Pulse Ox 11/24/17 07:39 100 H 20 96 11/24/17 07:18 99 F 104 H 21 105/82 24 L 11/24/17 05:00 98.7 F 99 H 21 116/72 98 11/24/17 03:50 112 H 18 116/72 98 11/24/17 03:40 103 H 11/24/17 03:00 98.5 F 92 H 17 125/82 98 11/24/17 02:00 98.5 F 97 H 21 125/82 98 11/24/17 01:00 99.2 F 109 H 19 130/80 93 L 11/24/17 00:00 99.2 F 97 H 19 130/80 93 L 11/23/17 23:00 99.2 F 98 H 19 130/80 93 L 11/23/17 22:33 108 H 22 96 11/23/17 22:00 99.2 F 108 H 19 129/104 96 11/23/17 20:47 128 H 21 111/93 96 11/23/17 19:21 99 F 117 H 19 95/70 100 11/23/17 19:14 105 H 11/23/17 18:54 115 H 23 95/70 100 11/23/17 18:00 115 H 17 109/84 100 11/23/17 17:00 99 F 128 H 24 83/32 100 11/23/17 15:58 99 F 97 H 24 98/70 100 11/23/17 15:00 98 F 97 H 24 107/56 94 L 11/23/17 13:56 97 H 22 89/44 94 L 11/23/17 13:00 87 19 106/75 95 11/23/17 11:55 98.8 F 99 H 16 89/64 100 11/23/17 11:00 76 16 144/69 100 11/23/17 10:00 115 H 21 92/64 100 11/23/17 09:21 107 H 28 H 109/68 100 Oxygen-Last 24 hours O2 Percentage 5 Liters = 40% O2 Percentage 5 Liters = 40% O2 Percentage 5 Liters = 40% O2 Percentage 5 Liters = 40% O2 Percentage 5 Liters = 40% O2 Percentage 5 Liters = 40% O2 Percentage 5 Liters = 40% O2 Percentage 5 Liters = 40% O2 Percentage 5 Liters = 40% O2 Percentage 6 Liters = 44% O2 Percentage 6 Liters = 44% O2 Percentage 6 Liters = 44% O2 Percentage 6 Liters = 44% O2 Percentage 6 Liters = 44% O2 Percentage 6 Liters = 44% O2 Percentage 6 Liters = 44% O2 Percentage 6 Liters = 44% O2 Percentage 60% O2 Percentage 60% O2 Percentage 60% O2 Percentage 60% O2 Percentage 60% Pain Assessment - Last Documented Pain Intensity 0 [facility] and Output: Intake & Output 11/21/17 11/22/17 11/23/17 11/24/17 11:59 11:59 11:59 11:59 Intake Total 100 721 Output Total 550 425 Balance -450 296 Weight 113.7 kg 112 kg Lab Results: Accuchecks Date 11/24/17 Date 11/23/17 Date 11/23/17 Date 11/23/17 Time 06:13 Time 22:00 Time 17:10 Time 11:55 Accucheck Value: 145 Accucheck Value: 204 Accucheck Value: 182 Accucheck Value: 189 Lab Results-Last 24 Hours 11/24/17 11/24/17 11/24/17 Range/Units 04:30 05:00 05:00 WBC 10.3 (4.0-10.5) K/mm3 RBC 3.49 L (4.1-5.4) M/mm3 Hgb 10.4 L (12.0-16.0) gm/dl Hct 35.9 (35-47) % MCV 102.9 H (78-100) fl MCH 29.7 (26-32) pg MCHC 29.0 L (32-36) g/dl RDW 15.8 H (11.5-14.0) % Plt Count 197 (150-450) K/mm3 MPV 13.4 H (6-9.5) fl Gran % 87.2 H (36.0-66.0) % Lymphocytes % 8.8 L (24.0-44.0) % Monocytes % 3.9 (0.0-12.0) % Eosinophils % 0.0 (0.00-5.0) % Basophils % 0.1 (0.0-0.4) % Basophils # 0.01 (0-0.4) INR (0.8-3.0) VBG pH 7.35 (7.32-7.42) VBG pCO2 at Pat Temp 68 H* (42-55) mm/Hg VBG pO2 at Pat Temp 39 (25-40) mm/Hg VBG HCO3 37.5 H* (22-28) meq/L VBG O2 Sat (Jayda) 81.0 L (95-100) VBG Base Excess 9.7 H (-2.0-2.0) VBG Hemoglobin 11.1 VBG Carboxyhemoglobin 2.7 (0.0-6.9) % T HGB POC Potassium 5.2 H (3.5-5.1) Sodium 145 (136-145) mEq/L Potassium 5.0 (3.5-5.1) mEq/L Chloride 106 (98-107) mEq/L Carbon Dioxide 35.4 H (21-32) mEq/L Anion Gap 8.8 (5-15) MEQ/L BUN 44 H (9-20) mg/dL Creatinine 2.20 H (0.55-1.30) mg/dl Estimated GFR 23 ML/MIN Glucose 162 H (70-110) MG/DL Calcium 8.9 (8.5-10.1) mg/dL Total Bilirubin 0.10 L (0.2-1.0) mg/dL AST 12 L (15-37) U/L ALT 11 L (12-78) U/L Alkaline Phosphatase 85 (46-116) U/L Serum Total Protein 7.3 (6.4-8.2) gm/dL Albumin 2.0 L (3.4-5.0) g/dL 11/24/17 Range/Units 05:00 WBC (4.0-10.5) K/mm3 RBC (4.1-5.4) M/mm3 Hgb (12.0-16.0) gm/dl Hct (35-47) % MCV (78-100) fl MCH (26-32) pg MCHC (32-36) g/dl RDW (11.5-14.0) % Plt Count (150-450) K/mm3 MPV (6-9.5) fl Gran % (36.0-66.0) % Lymphocytes % (24.0-44.0) % Monocytes % (0.0-12.0) % Eosinophils % (0.00-5.0) % Basophils % (0.0-0.4) % Basophils # (0-0.4) INR 5.73 H* (0.8-3.0) VBG pH (7.32-7.42) VBG pCO2 at Pat Temp (42-55) mm/Hg VBG pO2 at Pat Temp (25-40) mm/Hg VBG HCO3 (22-28) meq/L VBG O2 Sat (Jayda) (95-100) VBG Base Excess (-2.0-2.0) VBG Hemoglobin VBG Carboxyhemoglobin (0.0-6.9) % T HGB POC Potassium (3.5-5.1) Sodium (136-145) mEq/L Potassium (3.5-5.1) mEq/L Chloride (98-107) mEq/L Carbon Dioxide (21-32) mEq/L Anion Gap (5-15) MEQ/L BUN (9-20) mg/dL Creatinine (0.55-1.30) mg/dl Estimated GFR ML/MIN Glucose (70-110) MG/DL Calcium (8.5-10.1) mg/dL Total Bilirubin (0.2-1.0) mg/dL AST (15-37) U/L ALT (12-78) U/L Alkaline Phosphatase (46-116) U/L Serum Total Protein (6.4-8.2) gm/dL Albumin (3.4-5.0) g/dL Radiology Exams: Radiology Procedures Category Date Time Status CHEST 1 VIEW (PORTABLE) Stat Exams 11/24/17 09:03 Ordered Assessment/Plan (1) COPD exacerbation Current Visit: Yes Status: Acute Code(s): J44.1 - CHRONIC OBSTRUCTIVE PULMONARY DISEASE W (ACUTE) EXACERBATION (2) Metabolic encephalopathy Current Visit: Yes Status: Acute Assessment & Plan: improving still not eating or drinking COPD exacerbation continues to be severe with severe wheezing and respiratory distress will repeat CXR first was of very poor quality continue meropenem to cover for possible aspiration continue solumedrol continue nebs try mucomyst treatment worsening acute renal failure with decreased urinary output will give small fluid bolus and monitor for response. Continue to encourage po intake with her thickened liquids She has supratherapeutic inr and we continue to hold her warfarin no active bleeding. prognosis remains very guarded with her comorbidites and severity of illness but she has shown some clinical improvement overnight. Code(s): G93.41 - METABOLIC ENCEPHALOPATHY (3) Acute hypercapnic respiratory failure Current Visit: Yes Status: Acute Code(s): J96.02 - ACUTE RESPIRATORY FAILURE WITH HYPERCAPNIA (4) Hypothermia Current Visit: Yes Status: Acute Code(s): T68.XXXA - HYPOTHERMIA, INITIAL ENCOUNTER (5) CKD (chronic kidney disease) Current Visit: Yes Status: Chronic Code(s): N18.9 - CHRONIC KIDNEY DISEASE, UNSPECIFIED (6) Type 2 diabetes mellitus Current Visit: Yes Status: Chronic (7) Atrial fibrillation with rapid ventricular response Current Visit: Yes Status: Acute Code(s): I48.91 - UNSPECIFIED ATRIAL FIBRILLATION (8) Acute kidney injury Current Visit: Yes Status: Acute Code(s): N17.9 - ACUTE KIDNEY FAILURE, UNSPECIFIED (9) Dementia Current Visit: Yes Status: Acute Code(s): F03.90 - UNSPECIFIED DEMENTIA WITHOUT BEHAVIORAL DISTURBANCE
[2017-11-24] MEDS ORDERED: Lactated Ringers 500 ML IV ONE ×2 (09:30→16:11)
[2017-11-24] MEDS: Aricept 10 MG PO SCH (09:58)
[2017-11-24] MEDS: Coreg 6.25 MG PO SCH ×2 (09:59→21:13)
[2017-11-24] MEDS: KEPPRA 500 MG PO SCH ×2 (09:59→21:13)
[2017-11-24] MEDS: FOLATE 1 MG PO SCH (09:59)
[2017-11-24] MEDS: ZOLOFT 50 MG TABLET PO SCH (09:59)
[2017-11-24] MEDS: MAG-OX 400 PO SCH (09:59)
[2017-11-24] MEDS: SYNTHROID 100 MCG PO SCH (09:59)
[2017-11-24] MEDS: ZYLOPRIM 100 MG PO SCH (10:03)
[2017-11-24] MEDS: Lactated Ringers 1,000 ML IV SCH ×2 (12:10→21:42)
[2017-11-24] MEDS: Colace 100 MG PO SCH (21:13)
[2017-11-24] MEDS: PRAVASTATIN SODIUM PO SCH (21:14)
--- NOTE | 2017-11-24 21:33 | XRAY ---
Indication: Respiratory distress. Comparison: November 22, 2017. Portable chest remains underinflated with stable cardiomegaly and calcified granulomas. New left midlung subsegmental atelectasis. Remaining lungs clear. Comment: Preliminary interpretation was made by [facility]. No discrepancy.
[2017-11-24] MEDS: NovoLOG Insulin SQ PRN (21:42)
[2017-11-24] MEDS: Lantus Insulin SQ SCH (21:42)
[2017-11-25] MEDS: solu-MEDROL 40 MG IV SCH ×3 (01:40→17:17)
[2017-11-25 05:49] LABS: Basophil (Absolute #) 0 (0-0.4); Eosinophil % 0.1 % (0.00-5.0); Eosinophil (Absolute #) 0.01 (0-0.5); Granulocyte Absolute (ANC) 8.03 (1.4-6.9); Granulocytes % 86.6 % (36.0-66.0); Hematocrit 36.7 % (35-47); Hemoglobin 11.2 gm/dl (12.0-16.0); Lymphocyte (Absolute #) 0.94 (1.0-4.6); Lymphocytes % 10.1 % (24.0-44.0); Mean Cell Volume 100.8 fl (78-100); Mean Corpuscular Hgb Concent. 30.5 g/dl (32-36); Mean Platelet Volume 12.8 fl (6-9.5); Monocytes % 3.2 % (0.0-12.0); Platelet Count 171 K/mm3 (150-450); Red Blood Count 3.64 M/mm3 (4.1-5.4); White Blood Count 9.3 K/mm3 (4.0-10.5)
[2017-11-25 05:57] LABS: Mean Corpuscular Hemoglobin 30.7 pg (26-32)
[2017-11-25 06:44] LABS: ALBUMIN 2.1 g/dL (3.4-5.0); ANION GAP 12.4 MEQ/L (5-15); BILIRUBIN,TOTAL 0.1 mg/dL (0.2-1.0); Calcium 8.7 mg/dL (8.5-10.1); Carbon Dioxide 31.5 mEq/L (21-32); Creatinine 1 2.28 mg/dl (0.55-1.30); INR 5.74 (0.8-3.0); Potassium 5.4 mEq/L (3.5-5.1); Total Protein 6.8 gm/dL (6.4-8.2)
--- NOTE | 2017-11-25 08:22 | PCM.NOTE ---
Date and Time: 11/25/17821 Subjective Assessment: much more alert today answering simple questions breathing better weaned O2 still difficult to understand as is her baseline at times she denies any pain right now she has not eaten or had much of anything to drink yet. Objective Exam General Appearance: obese Neurologic Exam: alert Skin Exam: warm, dry Ears, Nose, Throat Exam: moist mucous membranes Neck Exam: non-tender, supple Respiratory Exam: rhonchi, wheezing, No chest tenderness Cardiovascular Exam: other (distatant heart sounds afib rate of 80) Gastrointestinal/Abdomen Exam: soft, normal bowel sounds, No tenderness Extremity Exam: pedal edema OBJECTIVE DATA Vital Signs: Vital Signs - 24 hr Temp Pulse Resp BP BP Pulse Ox 11/25/17 07:54 97.5 F 88 13 127/71 99 11/25/17 06:48 97.2 F 84 15 110/81 99 11/25/17 06:00 96.8 F 83 15 118/69 98 11/25/17 04:52 96.8 F 92 H 21 138/90 95 11/25/17 04:00 98.8 F 80 17 106/64 98 11/25/17 03:00 98.8 F 90 21 120/87 97 11/25/17 01:57 98.8 F 85 27 H 117/72 99 11/25/17 00:56 98.8 F 81 26 H 117/72 98 11/25/17 00:00 98.8 F 82 29 H 110/60 98 11/24/17 23:00 98.8 F 82 17 110/60 98 11/24/17 21:53 98.8 F 88 19 100/68 100 11/24/17 21:22 84 20 99 11/24/17 21:00 98.8 F 91 H 20 114/82 97 11/24/17 19:50 98.8 F 96 H 27 H 124/65 94 L 11/24/17 19:00 77 19 124/65 97 11/24/17 17:51 82 19 104/81 96 11/24/17 17:00 94 H 16 104/60 97 11/24/17 15:42 98.8 F 84 19 104/60 94 L 11/24/17 14:43 87 17 125/75 98 11/24/17 14:00 99 F 88 17 123/84 99 11/24/17 13:00 100 H 21 128/98 96 11/24/17 12:00 99 F 92 H 13 107/49 94 L 11/24/17 10:53 98 F 87 13 99/65 94 L 11/24/17 10:00 98 F 98 H 21 119/59 97 Oxygen-Last 24 hours O2 Percentage 3 Liters = 32% O2 Percentage 3 Liters = 32% O2 Percentage 3 Liters = 32% O2 Percentage 3 Liters = 32% O2 Percentage 3 Liters = 32% O2 Percentage 3 Liters = 32% O2 Percentage 3 Liters = 32% O2 Percentage 3 Liters = 32% O2 Percentage 3 Liters = 32% O2 Percentage 3 Liters = 32% O2 Percentage 3 Liters = 32% O2 Percentage 3 Liters = 32% O2 Percentage 6 Liters = 44% O2 Percentage 6 Liters = 44% O2 Percentage 6 Liters = 44% O2 Percentage 6 Liters = 44% O2 Percentage 6 Liters = 44% O2 Percentage 6 Liters = 44% O2 Percentage 6 Liters = 44% O2 Percentage 6 Liters = 44% O2 Percentage 6 Liters = 44% O2 Percentage 6 Liters = 44% Oxygen Flowrate (L/min)-RT 3 Pain Assessment - Last Documented Pain Intensity 0 Pain Scale Used Narciso Faces,FLACC Intake and Output: Intake & Output 11/22/17 11/23/17 11/24/17 11/25/17 11:59 11:59 11:59 11:59 Intake Total 980 177 4392 Output Total 550 425 300 Balance -470 737 7560 Weight 113.7 kg 112 kg 111.8 kg Lab Results: Accuchecks Date 11/25/17 Date 11/24/17 Date 11/24/17 Date 11/24/17 Time 06:00 Time 22:00 Time 17:56 Time 11:24 Accucheck Value: 156 Accucheck Value: 205 Accucheck Value: 157 Accucheck Value: 143 Lab Results-Last 24 Hours 11/25/17 11/25/17 11/25/17 Range/Units 05:48 05:48 05:48 WBC 9.3 (4.0-10.5) K/mm3 RBC 3.64 L (4.1-5.4) M/mm3 Hgb 11.2 L (12.0-16.0) gm/dl Hct 36.7 (35-47) % MCV 100.8 H (78-100) fl MCH 30.7 (26-32) pg MCHC 30.5 L (32-36) g/dl RDW 16.0 H (11.5-14.0) % Plt Count 171 (150-450) K/mm3 MPV 12.8 H (6-9.5) fl Gran % 86.6 H (36.0-66.0) % Lymphocytes % 10.1 L (24.0-44.0) % Monocytes % 3.2 (0.0-12.0) % Eosinophils % 0.1 (0.00-5.0) % Basophils % 0.0 (0.0-0.4) % Basophils # 0 (0-0.4) INR 5.74 H* (0.8-3.0) Sodium 147 H (136-145) mEq/L Potassium 5.4 H (3.5-5.1) mEq/L Chloride 108 H (98-107) mEq/L Carbon Dioxide 31.5 (21-32) mEq/L Anion Gap 12.4 (5-15) MEQ/L BUN 56 H (9-20) mg/dL Creatinine 2.28 H (0.55-1.30) mg/dl Estimated GFR 22 ML/MIN Glucose 155 H (70-110) MG/DL Calcium 8.7 (8.5-10.1) mg/dL Total Bilirubin 0.10 L (0.2-1.0) mg/dL AST 17 (15-37) U/L ALT 12 (12-78) U/L Alkaline Phosphatase 82 (46-116) U/L Serum Total Protein 6.8 (6.4-8.2) gm/dL Albumin 2.1 L (3.4-5.0) g/dL Radiology Exams: Radiology Procedures Category Date Time Status CHEST 1 VIEW (PORTABLE) Stat Exams 11/24/17 09:03 Completed Assessment/Plan (1) COPD exacerbation Current Visit: Yes Status: Acute Assessment & Plan: continue the meropenem to cover potential possible aspiration with her pcn allergy continue steroids urine output still low hr improved after the fluid bolus yesterday and iv fluids and cardizem gtt stop cardizem gtt continue beta dori po continue low rate iv fluids monitor urine output transfer to med surg hopeful for back to [facility] in next 1 to 2 days depending on response to steroids on the breathing would like to wean from the iv steroids. Code(s): J44.1 - CHRONIC OBSTRUCTIVE PULMONARY DISEASE W (ACUTE) EXACERBATION (2) Metabolic encephalopathy Current Visit: Yes Status: Acute Code(s): G93.41 - METABOLIC ENCEPHALOPATHY (3) Acute hypercapnic respiratory failure Current Visit: Yes Status: Acute Code(s): J96.02 - ACUTE RESPIRATORY FAILURE WITH HYPERCAPNIA (4) Hypothermia Current Visit: Yes Status: Resolved Code(s): T68.XXXA - HYPOTHERMIA, INITIAL ENCOUNTER (5) CKD (chronic kidney disease) Current Visit: Yes Status: Chronic Code(s): N18.9 - CHRONIC KIDNEY DISEASE, UNSPECIFIED (6) Type 2 diabetes mellitus Current Visit: Yes Status: Chronic (7) Atrial fibrillation with rapid ventricular response Current Visit: Yes Status: Acute Code(s): I48.91 - UNSPECIFIED ATRIAL FIBRILLATION (8) Acute kidney injury Current Visit: Yes Status: Acute Code(s): N17.9 - ACUTE KIDNEY FAILURE, UNSPECIFIED (9) Dementia Current Visit: Yes Status: Acute Code(s): F03.90 - UNSPECIFIED DEMENTIA WITHOUT BEHAVIORAL DISTURBANCE
[2017-11-25] MEDS: SYNTHROID 100 MCG PO SCH (08:44)
[2017-11-25] MEDS: Coreg 6.25 MG PO SCH ×2 (08:44→22:40)
[2017-11-25] MEDS: MAG-OX 400 PO SCH (08:44)
[2017-11-25] MEDS: ZOLOFT 50 MG TABLET PO SCH (08:44)
[2017-11-25] MEDS: FOLATE 1 MG PO SCH (08:44)
[2017-11-25] MEDS: KEPPRA 500 MG PO SCH ×2 (08:45→22:40)
[2017-11-25] MEDS: Aricept 10 MG PO SCH (08:45)
[2017-11-25] MEDS: ZYLOPRIM 100 MG PO SCH (08:45)
[2017-11-25] MEDS: MERREM 500MG 500 MG in Sodium Chloride 100ML MINI-BAG PLUS 100 ML IV SCH ×2 (08:46→22:27)
[2017-11-25] MEDS: NovoLOG Insulin SQ PRN (11:55)
[2017-11-25] MEDS: PROVENTIL 2.5 MG/3 ML NEB IH PRN (20:25)
[2017-11-25] MEDS: Colace 100 MG PO SCH (22:40)
[2017-11-25] MEDS: Lantus Insulin SQ SCH (22:40)
[2017-11-25] MEDS: PRAVASTATIN SODIUM PO SCH (22:41)
[2017-11-26] MEDS: solu-MEDROL 40 MG IV SCH ×3 (02:27→16:53)
[2017-11-26 06:01] LABS: Basophil (Absolute #) 0 (0-0.4); Eosinophil (Absolute #) 0 (0-0.5); Granulocyte Absolute (ANC) 8.56 (1.4-6.9); Granulocytes % 89.7 % (36.0-66.0); Hematocrit 39.5 % (35-47); Hemoglobin 11.9 gm/dl (12.0-16.0); Lymphocyte (Absolute #) 0.79 (1.0-4.6); Lymphocytes % 8.3 % (24.0-44.0); Mean Cell Volume 102.9 fl (78-100); Mean Corpuscular Hgb Concent. 30.1 g/dl (32-36); Mean Platelet Volume 12.8 fl (6-9.5); Monocyte (Absolute #) 0.19 (0.0-1.3); Platelet Count 170 K/mm3 (150-450); Red Blood Count 3.84 M/mm3 (4.1-5.4); Red Cell Distribution Width 15.7 % (11.5-14.0); White Blood Count 9.5 K/mm3 (4.0-10.5)
[2017-11-26 06:16] LABS: Mean Corpuscular Hemoglobin 30.9 pg (26-32)
[2017-11-26 06:17] LABS: INR 4.79 (0.8-3.0)
[2017-11-26 06:25] LABS: ANION GAP 9.2 MEQ/L (5-15); BILIRUBIN,TOTAL 0.2 mg/dL (0.2-1.0); Calcium 8.6 mg/dL (8.5-10.1); Carbon Dioxide 32.8 mEq/L (21-32); Creatinine 1 2.35 mg/dl (0.55-1.30); Total Protein 7.1 gm/dL (6.4-8.2)
[2017-11-26] MEDS ORDERED: Sodium Chloride 0.9% 1000 ML 1,000 ML IV STA (08:11)
[2017-11-26] MEDS: MERREM 500MG 500 MG in Sodium Chloride 100ML MINI-BAG PLUS 100 ML IV SCH ×2 (08:56→22:10)
--- NOTE | 2017-11-26 11:11 | XRAY ---
Indication: Difficulty swallowing. Modified barium swallow study was performed by the Department of speech therapy with fluoroscopic assistance provided. Patient ingested multiple consistencies of liquids. Full report and recommendations will be reported separately. Approximately 54 seconds fluoroscopy used.
[2017-11-26] MEDS: FOLATE 1 MG PO SCH (11:38)
[2017-11-26] MEDS: MAG-OX 400 PO SCH (11:39)
[2017-11-26] MEDS: SYNTHROID 100 MCG PO SCH (11:39)
[2017-11-26] MEDS: Coreg 6.25 MG PO SCH ×2 (11:39→22:09)
[2017-11-26] MEDS: KEPPRA 500 MG PO SCH ×2 (11:39→22:09)
[2017-11-26] MEDS: ZOLOFT 50 MG TABLET PO SCH (11:39)
[2017-11-26] MEDS: Aricept 10 MG PO SCH (11:41)
[2017-11-26] MEDS: ZYLOPRIM 100 MG PO SCH (11:41)
[2017-11-26] MEDS: NovoLOG Insulin SQ PRN (17:04)
--- NOTE | 2017-11-26 17:07 | PCM.NOTE ---
Date and Time: 11/26/17 1703 Subjective Assessment: remains alert still difficult to understand still refusing food and drinking. denies pain right now. Had period of increased shortness of breath yesterday after eating modified swallow evaluation by speech today Objective Exam General Appearance: obese Neurologic Exam: alert, other (left hand contracture chronic) Skin Exam: warm, dry Neck Exam: normal inspection, non-tender, supple Respiratory Exam: rhonchi, wheezing Cardiovascular Exam: tachycardia, irregular Gastrointestinal/Abdomen Exam: soft, normal bowel sounds, No tenderness Extremity Exam: pedal edema, swelling OBJECTIVE DATA Vital Signs: Vital Signs - 24 hr Temp Pulse Resp BP Pulse Ox 11/26/17 16:00 98.4 F 92 H 18 114/63 95 11/26/17 11:15 98.4 F 110 H 17 115/62 93 L 11/26/17 06:55 98.4 F 113 H 17 111/60 93 L 11/26/17 04:00 96.4 F 111 H 16 149/73 96 11/26/17 00:00 98.3 F 91 H 20 103/60 99 11/25/17 20:25 84 20 97 11/25/17 20:00 97.8 F 98 H 12 113/58 93 L Oxygen-Last 24 hours O2 Percentage 3 Liters = 32% O2 Percentage 3 Liters = 32% O2 Percentage 3 Liters = 32% O2 Percentage 3 Liters = 32% Oxygen Flowrate (L/min)-RT 3 Pain Assessment - Last Documented Pain Intensity 0 Pain Scale Used 0-10 Pain Scale,Mckenzie-Chaudhary Faces Intake and Output: Intake & Output 11/24/17 11/25/17 11/26/17 11/27/17 11:59 11:59 11:59 11:59 Intake Total 721 2439 1507 120 Output Total 425 300 855 Balance 296 2139 652 120 Weight 112 kg 111.8 kg 111.6 kg Lab Results: Accuchecks Date 11/26/17 Date 11/26/17 Date 11/26/17 Date 11/25/17 Time 12:00 Time 07:00 Time 00:00 Time 18:00 Accucheck Value: 116 Accucheck Value: 114 Accucheck Value: 126 Accucheck Value: 144 Lab Results-Last 24 Hours 11/26/17 11/26/17 11/26/17 Range/Units 05:40 05:40 05:40 WBC 9.5 (4.0-10.5) K/mm3 RBC 3.84 L (4.1-5.4) M/mm3 Hgb 11.9 L (12.0-16.0) gm/dl Hct 39.5 (35-47) % MCV 102.9 H (78-100) fl MCH 30.9 (26-32) pg MCHC 30.1 L (32-36) g/dl RDW 15.7 H (11.5-14.0) % Plt Count 170 (150-450) K/mm3 MPV 12.8 H (6-9.5) fl Gran % 89.7 H (36.0-66.0) % Lymphocytes % 8.3 L (24.0-44.0) % Monocytes % 2.0 (0.0-12.0) % Eosinophils % 0.0 (0.00-5.0) % Basophils % 0.0 (0.0-0.4) % Basophils # 0 (0-0.4) INR 4.79 H (0.8-3.0) Sodium 145 (136-145) mEq/L Potassium 5.0 (3.5-5.1) mEq/L Chloride 108 H (98-107) mEq/L Carbon Dioxide 32.8 H (21-32) mEq/L Anion Gap 9.2 (5-15) MEQ/L BUN 64 H (9-20) mg/dL Creatinine 2.35 H (0.55-1.30) mg/dl Estimated GFR 21 ML/MIN Glucose 136 H (70-110) MG/DL Calcium 8.6 (8.5-10.1) mg/dL Total Bilirubin 0.20 (0.2-1.0) mg/dL AST 21 (15-37) U/L ALT 17 (12-78) U/L Alkaline Phosphatase 79 (46-116) U/L Serum Total Protein 7.1 (6.4-8.2) gm/dL Albumin 2.0 L (3.4-5.0) g/dL Radiology Exams: Radiology Procedures Category Date Time Status MODIFIED BARIUM SWALLOW (RAD) [MODIFIED BARIUM SWALLOW Exams 11/26/17 10:00 Completed EXAM] Routine Assessment/Plan (1) COPD exacerbation Current Visit: Yes Status: Acute Assessment & Plan: continue nebs steroids and meropenem to cover for any aspiration swallow evaluation with speech today Code(s): J44.1 - CHRONIC OBSTRUCTIVE PULMONARY DISEASE W (ACUTE) EXACERBATION (2) Metabolic encephalopathy Current Visit: Yes Status: Acute Code(s): G93.41 - METABOLIC ENCEPHALOPATHY (3) Acute hypercapnic respiratory failure Current Visit: Yes Status: Acute Code(s): J96.02 - ACUTE RESPIRATORY FAILURE WITH HYPERCAPNIA (4) Hypothermia Current Visit: Yes Status: Resolved Code(s): T68.XXXA - HYPOTHERMIA, INITIAL ENCOUNTER (5) CKD (chronic kidney disease) Current Visit: Yes Status: Chronic Code(s): N18.9 - CHRONIC KIDNEY DISEASE, UNSPECIFIED (6) Type 2 diabetes mellitus Current Visit: Yes Status: Chronic (7) Atrial fibrillation with rapid ventricular response Current Visit: Yes Status: Acute Assessment & Plan: worsening today after refusing her pills including her coreg she has not had much input and decreased urine output with worsening renal function continue iv fluids and give 1L NS bolus today still supratherapeutic on inr her overall prognosis remains guarded with her limited improvements and her multiple co morbidities and her progressive dementia with now her refusal to eat and take medications Code(s): I48.91 - UNSPECIFIED ATRIAL FIBRILLATION (8) Acute kidney injury Current Visit: Yes Status: Acute Code(s): N17.9 - ACUTE KIDNEY FAILURE, UNSPECIFIED (9) Dementia Current Visit: Yes Status: Acute Code(s): F03.90 - UNSPECIFIED DEMENTIA WITHOUT BEHAVIORAL DISTURBANCE
[2017-11-26] MEDS: Colace 100 MG PO SCH (22:09)
[2017-11-26] MEDS: PRAVASTATIN SODIUM PO SCH (22:10)
[2017-11-26] MEDS: Lantus Insulin SQ SCH (22:11)
[2017-11-27] MEDS: solu-MEDROL 40 MG IV SCH ×3 (06:13→18:23)
[2017-11-27 06:31] LABS: INR 4.03 (0.8-3.0)
[2017-11-27 06:57] LABS: ANION GAP 8.6 MEQ/L (5-15); Calcium 8.4 mg/dL (8.5-10.1); Carbon Dioxide 32.9 mEq/L (21-32); Creatinine 1 2.26 mg/dl (0.55-1.30); Potassium 4.6 mEq/L (3.5-5.1)
[2017-11-27] MEDS ORDERED: Sodium Chloride 0.9% 1000 ML 1,000 ML IV STA (08:45)
[2017-11-27] MEDS: MERREM 500MG 500 MG in Sodium Chloride 100ML MINI-BAG PLUS 100 ML IV SCH ×2 (11:09→23:21)
[2017-11-27] MEDS: MAG-OX 400 PO SCH (13:01)
[2017-11-27] MEDS: KEPPRA 500 MG PO SCH ×2 (13:01→23:25)
[2017-11-27] MEDS: FOLATE 1 MG PO SCH (13:01)
[2017-11-27] MEDS: Coreg 6.25 MG PO SCH ×2 (13:01→23:25)
[2017-11-27] MEDS: Aricept 10 MG PO SCH (13:01)
[2017-11-27] MEDS: SYNTHROID 100 MCG PO SCH (13:01)
[2017-11-27] MEDS: ZYLOPRIM 100 MG PO SCH (13:02)
[2017-11-27] MEDS: ZOLOFT 50 MG TABLET PO SCH (13:02)
[2017-11-27] MEDS ORDERED: Lasix 20 MG/2 ML IV ONE (13:45)
--- NOTE | 2017-11-27 17:46 | PCM.NOTE ---
Date and Time: 11/27/171740 Subjective Assessment: she did better yesterday and was able to sit up and eat some and we were going to try to send her back to [facility] for continued treatment today, but today she is too somnolent will not wake up long enough to eat safely to protect her airway she continues to have very little urine output she has tolerated the oxygen wean to 3L NC O2 Objective Exam General Appearance: no apparent distress, obese, No alert Skin Exam: normal color, warm, dry Eye Exam: PERRL, EOMI, eyes nml inspection Ears, Nose, Throat Exam: dry mucous membranes Neck Exam: normal inspection, non-tender, supple, full range of motion Respiratory Exam: rhonchi, wheezing, No respiratory distress Cardiovascular Exam: regular rate/rhythm, normal heart sounds Gastrointestinal/Abdomen Exam: soft, No tenderness, No mass Extremity Exam: pedal edema OBJECTIVE DATA Vital Signs: Vital Signs - 24 hr Temp Pulse Resp BP Pulse Ox 11/27/17 16:00 98.6 F 105 H 20 112/60 98 11/27/17 11:17 98.4 F 102 H 18 110/60 94 L 11/27/17 07:22 108 H 16 94 L 11/27/17 07:20 98.5 F 100 H 17 112/62 97 11/27/17 04:00 97.9 F 108 H 19 109/77 97 11/27/17 00:00 97.9 F 109 H 18 105/62 96 11/26/17 21:04 95 H 18 95 11/26/17 20:00 98.3 F 111 H 20 126/66 94 L Oxygen-Last 24 hours O2 Percentage 3 Liters = 32% O2 Percentage 3 Liters = 32% O2 Percentage 3 Liters = 32% O2 Percentage 3 Liters = 32% O2 Percentage 3 Liters = 32% Pain Assessment - Last Documented Pain Intensity 0 Pain Scale Used 0-10 Pain Scale,FLACC Intake and Output: Intake & Output 11/25/17 11/26/17 11/27/17 11/28/17 11:59 11:59 11:59 11:59 Intake Total 2439 1507 2203 0 Output Total 300 855 675 400 Balance 2139 652 1528 -400 Weight 111.8 kg 111.6 kg 117.4 kg Lab Results: Accuchecks Date 11/27/17 Date 11/27/17 Date 11/27/17 Date 11/26/17 Time 16:07 Time 11:30 Time 07:30 Time 21:45 Accucheck Value: 165 Accucheck Value: 177 Accucheck Value: 175 Accucheck Value: 175 Lab Results-Last 24 Hours 11/27/17 11/27/17 Range/Units 05:30 05:30 INR 4.03 H (0.8-3.0) Sodium 147 H (136-145) mEq/L Potassium 4.6 (3.5-5.1) mEq/L Chloride 110 H (98-107) mEq/L Carbon Dioxide 32.9 H (21-32) mEq/L Anion Gap 8.6 (5-15) MEQ/L BUN 71 H (9-20) mg/dL Creatinine 2.26 H (0.55-1.30) mg/dl Estimated GFR 22 ML/MIN Glucose 161 H (70-110) MG/DL Calcium 8.4 L (8.5-10.1) mg/dL Radiology Exams: Radiology Procedures Category Date Time Status MODIFIED BARIUM SWALLOW (RAD) [MODIFIED BARIUM SWALLOW Exams 11/26/17 10:00 Completed EXAM] Routine Multi-Disciplinary Progress Notes: Multi-Disciplinary Progress Notes 11/27/17 14:55 Nutrition Note by Brissa Anna F/u Note: MBS completed with dx of mild-mod oral pharyngeal dysphagia. Recommended pureed diet with honey thickened liquids. Pt is total assist with meals. Labs 11/27= Na 147, BUN 71, Cr 226, glu 161, hgb 11.9. Weight 117.4 kg. Pt with poor po intake; 0-25%. Sending ensure 1 can tid with meals. goal #1) increase po intake >25% Will monitor and f/u prn. TJAY Christiansen Initialized on 11/27/17 14:55 - END OF NOTE Assessment/Plan (1) COPD exacerbation Current Visit: Yes Status: Acute Assessment & Plan: breathing appears to be improving mental status worsened today however has uremia with the acute kidney injury and poor output despite the weight gain will try additional 1L NS bolus and increased fluid rate this did not improve fluid output and 20 mg IV lasix given her overall prognosis remains very poor with her poor response to treatment thus far. still supratherapuetic inr worsening renal function will repeat renal function in am monitor I/O encourage PO as tolerated if lack of improvement may need to further discuss with family pursing comfort measures. Code(s): J44.1 - CHRONIC OBSTRUCTIVE PULMONARY DISEASE W (ACUTE) EXACERBATION (2) Metabolic encephalopathy Current Visit: Yes Status: Acute Code(s): G93.41 - METABOLIC ENCEPHALOPATHY (3) Acute hypercapnic respiratory failure Current Visit: Yes Status: Acute Code(s): J96.02 - ACUTE RESPIRATORY FAILURE WITH HYPERCAPNIA (4) Hypothermia Current Visit: Yes Status: Resolved Code(s): T68.XXXA - HYPOTHERMIA, INITIAL ENCOUNTER (5) CKD (chronic kidney disease) Current Visit: Yes Status: Chronic Code(s): N18.9 - CHRONIC KIDNEY DISEASE, UNSPECIFIED (6) Type 2 diabetes mellitus Current Visit: Yes Status: Chronic (7) Atrial fibrillation with rapid ventricular response Current Visit: Yes Status: Acute Code(s): I48.91 - UNSPECIFIED ATRIAL FIBRILLATION (8) Acute kidney injury Current Visit: Yes Status: Acute Code(s): N17.9 - ACUTE KIDNEY FAILURE, UNSPECIFIED (9) Dementia Current Visit: Yes Status: Acute Code(s): F03.90 - UNSPECIFIED DEMENTIA WITHOUT BEHAVIORAL DISTURBANCE
[2017-11-27] MEDS: Lantus Insulin SQ SCH (23:23)
[2017-11-27] MEDS: Colace 100 MG PO SCH (23:25)
[2017-11-27] MEDS: PRAVASTATIN SODIUM PO SCH (23:26)
[2017-11-28] MEDS: solu-MEDROL 40 MG IV SCH ×2 (01:48→10:55)
[2017-11-28 05:13] LABS: VBG BASE EXCESS 4.2 (-2.0-2.0); VBG CARBOXYHEMOGLOBIN 2.2 % T HGB (0.0-6.9); VBG HCO3- 33.2 meq/L (22-28); VBG HEMOGLOBIN 11.5; VBG O2 SATURATION 95.3 (95-100); VBG POTASSIUM 4.6 (3.5-5.1); VBG pH 7.26 (7.32-7.42)
[2017-11-28 05:38] LABS: Hematocrit 36.7 % (35-47); Hemoglobin 10.7 gm/dl (12.0-16.0); Mean Cell Volume 101.4 fl (78-100); Mean Corpuscular Hgb Concent. 29.2 g/dl (32-36); Platelet Count 144 K/mm3 (150-450); Red Blood Count 3.62 M/mm3 (4.1-5.4); Red Cell Distribution Width 15.6 % (11.5-14.0); White Blood Count 8.8 K/mm3 (4.0-10.5)
[2017-11-28 05:43] LABS: Mean Corpuscular Hemoglobin 29.5 pg (26-32)
[2017-11-28 06:00] LABS: INR 3.3 (0.8-3.0)
[2017-11-28 06:56] LABS: ALBUMIN 1.8 g/dL (3.4-5.0); ANION GAP 9.8 MEQ/L (5-15); BILIRUBIN,TOTAL 0.2 mg/dL (0.2-1.0); Calcium 8.4 mg/dL (8.5-10.1); Carbon Dioxide 30.6 mEq/L (21-32); Creatinine 1 2.26 mg/dl (0.55-1.30); Potassium 4.6 mEq/L (3.5-5.1); Total Protein 5.9 gm/dL (6.4-8.2)
[2017-11-28] MEDS ORDERED: Lasix 20 MG/2 ML IV ONE (09:00)
[2017-11-28] MEDS: MERREM 500MG 500 MG in Sodium Chloride 100ML MINI-BAG PLUS 100 ML IV SCH (10:54)
[2017-11-28] MEDS: SYNTHROID 100 MCG PO SCH (10:55)
[2017-11-28] MEDS: FOLATE 1 MG PO SCH (10:55)
[2017-11-28] MEDS: MAG-OX 400 PO SCH (10:55)
[2017-11-28] MEDS: ZYLOPRIM 100 MG PO SCH (10:55)
[2017-11-28] MEDS: Coreg 6.25 MG PO SCH (10:55)
[2017-11-28] MEDS: ZOLOFT 50 MG TABLET PO SCH (10:55)
[2017-11-28] MEDS: KEPPRA 500 MG PO SCH (10:55)
[2017-11-28] MEDS: Aricept 10 MG PO SCH (10:56)
[2017-11-28 11:57] VITALS: BP 122/70; PULSE 109; O2SAT 97
--- NOTE | 2017-11-28 12:13 | PCM.DS ---
Discharge Summary Date of Admission: 11/22/17 17:04 Date of Discharge: 11/28/17 Admitting Physician: MAU COWAN Primary Care Provider: STACKRandy LOPES NELSON Allergies Allergies KERLINE Inhibitors Allergy (Verified 09/29/17 23:28) adhesive tape Allergy (Verified 09/29/17 23:28) atorvastatin [From Lipitor] Allergy (Verified 09/29/17 23:28) codeine Allergy (Verified 11/22/17 12:20) diphenhydramine Allergy (Verified 09/29/17 23:28) levofloxacin [From Levaquin] Allergy (Verified 09/29/17 23:28) meperidine Allergy (Verified 09/29/17 23:28) NSAIDS (Non-Steroidal Anti-Inflamma Allergy (Verified 09/29/17 23:28) Penicillins Allergy (Verified 09/29/17 23:28) simvastatin [From Zocor] Allergy (Verified 11/22/17 12:20) Hospital Summary - Hospital Course Hospital Course: Ms. Casey is an 82 y/o who is living at [facility] and developed increased respiratory difficulty and wheezing yesterday on 11/21. She had been having hypoglycemic episodes earlier in the week. She was then on 11/22 found to have unresponsive with apneic episodes and hypothermia and desaturations. She was evaluated in ED and found to have difficult to arouse and hypercapneic. She was given bumex then a iv fluid bolus by the ED physician then I was called for admission. BIpap was started at that time. On her arrival to the floor she was responsive to painful stimuli and suctioning of some thick bloody mucous from her nares. She replied "no" but otherwise was not answering questions. She was cold with rectal temperature of 95F. She was having shallow breathing with coarse upper respiratory sounds. The chest xray was portable and of very poor quality and given her critical illness further imaging was avoided do to fear of decompensation. I was on the floor when she arrived and her clinical status was apparent she needed icu level care and bipap therapy and she was moved over. She was not having difficulty oxygenating but was having apparent apneic episodes and poor inspiratory effort and shallow breathing. She was continued on the bipap and given her hx of aspiration and dysphagia she was covered with meropenem and given methyprednisolone IV for her wheezing. She was placed on a Robin Hugger and bipap was at 12/6 with repeat blood gas showing improved ventilation. Her warfarin was held throughout the stay due to persistent supratherapuetic INR. Her lantus and use high dose sliding scale insulin was continued with reasonable sugar control. On 11/23 she has had shivering since this am. there was some concern over possible small seizure activity with some posturing early this am. and she was given IV keppra and then po keppra but no real change in her chronic shivering She still had limited communications and her heart rate early this am around 05: 00 and was given metoprolol IV 5mg that improved it back down to around 120's afib with rvr, but was not improving further and she was given iv cardizem bolus followed by cardizem gtt. Her shivering prevented accurate tack picker on the telemetry. Her bipap was continued. On 11/24 she was still not eating or drinking, she continued to have severe wheezing and respiratory distress repeat cxr showed some atelectasis no effusion and she was continued on meropemen and solumedrol she was given iv fluid bolus and improved the rate some 11/25 She was much more alert simple questions breathing better weaned O2 but still did not ant to eat or drink. She denied any pain or nausea urine output remained low and cardizem gtt was weaned off and fluid bolus was repeated and continue no iv fluids. She did have a period of increased shortness of breath after eating and a modified swallow evaluation by speech was ordered 11/26 She was less alert again and began refusing her pills including her coreg she continued to have decreased urine output with worsening renal function the iv fluids were continued and a 1L NS bolus was given without much improvement and did sit up in the evening for a short time and eat some but then went to sleep that night and did not wake up or arouse much. 11/27 she was not arousing again and was too somnolent will not wake up long enough to eat safely to protect her airway she continues to have very little urine output she has tolerated the oxygen wean to 3L NC O2 she was given another fluid bolus but did not show any improvement and was showing more edema and weight gain and iv lasix was given without much response. 11/28 Her respiratory acidosis was worse again in the am and the renal function remained diminished with urine out put not responding well to fluid bolus or iv loop diuretics. I had a long discussion with Sonam's daughter and JUS Mihaela via telephone discussing her current status and treatment options and her overall poor prognosis with lack of clinical response and worsening renal failure and volume overload. We discussed treatment options like continued bipap and consideration for transfer and dialysis and discussed her overall health and its gradual decline. We discussed Sonam's chcf wishes to not be sustained on machines and that she is getting fewer good days now then she had previously. After long discussion we agreed that dialysis would not be in Sonam's wishes in this situation due to the potential she would be reliant on a machine to sustain her life and the pain and suffering the process of going to dialysis and starting the process of dialysis, and given the overall lower quality of life she has had since the stroke. We have decided to continue treatment of the copd exacerbation and pneumonia with [facility]. WE will focus more on comfort measures and understand that the uremia and CO2 retention may cause her to be drowsy and less responsive and this may lead to her . We discussed we can change these decisions if her clinical status begins to improve in the future. - Vitals & Intake/Output Vital Signs: Vital Signs Temperature 97.7 F 11/28/17 11:56 Pulse Rate 109 H 11/28/17 11:56 Respiratory Rate 22 11/28/17 11:56 Blood Pressure 122/70 11/28/17 11:56 O2 Sat by Pulse Oximetry 97 11/28/17 11:56 Oxygen-Last Documented O2 Percentage 3 Liters = 32% Intake & Output: Intake & Output 11/26/17 11/27/17 11/28/17 11/29/17 11:59 11:59 11:59 11:59 Intake Total 1507 2203 2824 Output Total 855 675 700 Balance 652 1528 2124 Weight 111.6 kg 117.4 kg 118.7 kg - Lab Result Diagrams: 11/28/17 05:30 11/28/17 05:30 Lab Results-Last 24 Hrs: Accuchecks Date 11/28/17 Date 11/28/17 Date 11/27/17 Date 11/27/17 Time 11:50 Time 07:30 Time 21:00 Time 16:07 Accucheck Value: 98 Accucheck Value: 116 Accucheck Value: 135 Accucheck Value: 165 Lab Results-Last 24 Hours 11/28/17 11/28/17 11/28/17 Range/Units 05:07 05:30 05:30 WBC 8.8 (4.0-10.5) K/mm3 RBC 3.62 L (4.1-5.4) M/mm3 Hgb 10.7 L (12.0-16.0) gm/dl Hct 36.7 (35-47) % MCV 101.4 H (78-100) fl MCH 29.5 (26-32) pg MCHC 29.2 L (32-36) g/dl RDW 15.6 H (11.5-14.0) % Plt Count 144 L (150-450) K/mm3 MPV 13.0 H (6-9.5) fl INR (0.8-3.0) VBG pH 7.26 L (7.32-7.42) VBG pCO2 at Pat Temp 74 H* (42-55) mm/Hg VBG pO2 at Pat Temp 67 H (25-40) mm/Hg VBG HCO3 33.2 H* (22-28) meq/L VBG O2 Sat (Jayda) 95.3 (95-100) VBG Base Excess 4.2 H (-2.0-2.0) VBG Hemoglobin 11.5 VBG Carboxyhemoglobin 2.2 (0.0-6.9) % T HGB POC Potassium 4.6 (3.5-5.1) Sodium 147 H (136-145) mEq/L Potassium 4.6 (3.5-5.1) mEq/L Chloride 111 H (98-107) mEq/L Carbon Dioxide 30.6 (21-32) mEq/L Anion Gap 9.8 (5-15) MEQ/L BUN 70 H (9-20) mg/dL Creatinine 2.26 H (0.55-1.30) mg/dl Estimated GFR 22 ML/MIN Glucose 138 H (70-110) MG/DL Calcium 8.4 L (8.5-10.1) mg/dL Total Bilirubin 0.20 (0.2-1.0) mg/dL AST 18 (15-37) U/L ALT 18 (12-78) U/L Alkaline Phosphatase 68 (46-116) U/L Serum Total Protein 5.9 L (6.4-8.2) gm/dL Albumin 1.8 L (3.4-5.0) g/dL 11/28/17 Range/Units 05:30 WBC (4.0-10.5) K/mm3 RBC (4.1-5.4) M/mm3 Hgb (12.0-16.0) gm/dl Hct (35-47) % MCV (78-100) fl MCH (26-32) pg MCHC (32-36) g/dl RDW (11.5-14.0) % Plt Count (150-450) K/mm3 MPV (6-9.5) fl INR 3.30 H (0.8-3.0) VBG pH (7.32-7.42) VBG pCO2 at Pat Temp (42-55) mm/Hg VBG pO2 at Pat Temp (25-40) mm/Hg VBG HCO3 (22-28) meq/L VBG O2 Sat (Jayda) (95-100) VBG Base Excess (-2.0-2.0) VBG Hemoglobin VBG Carboxyhemoglobin (0.0-6.9) % T HGB POC Potassium (3.5-5.1) Sodium (136-145) mEq/L Potassium (3.5-5.1) mEq/L Chloride (98-107) mEq/L Carbon Dioxide (21-32) mEq/L Anion Gap (5-15) MEQ/L BUN (9-20) mg/dL Creatinine (0.55-1.30) mg/dl Estimated GFR ML/MIN Glucose (70-110) MG/DL Calcium (8.5-10.1) mg/dL Total Bilirubin (0.2-1.0) mg/dL AST (15-37) U/L ALT (12-78) U/L Alkaline Phosphatase (46-116) U/L Serum Total Protein (6.4-8.2) gm/dL Albumin (3.4-5.0) g/dL Micro Results-Entire Visit: Accuchecks Date 11/28/17 Date 11/28/17 Date 11/27/17 Date 11/27/17 Time 11:50 Time 07:30 Time 21:00 Time 16:07 Accucheck Value: 98 Accucheck Value: 116 Accucheck Value: 135 Accucheck Value: 165 - Procedures and Test Procedures and Tests throughout Hospitalization: Therapy Orders & Screens 11/22/17 13:13 BiPap/CPAP Assessment ROUTINE Comment: 11/22/17 20:11 RT Screen per Nursing Assess ONCE Comment: Protocol Order Physician Instructions: Greater than 3 points order RT Admission Screen Reason For Exam: Triggered on Admission Diagnosis: ACUTE DYSPNEA Diagnosis: ACUTE DYSPNEA Home O2: Yes CHF: Yes Total Points: 8 11/22/17 21:08 neb [Respiratory Nebulizer] UD Comment: ALBUTEROL Q6PRN PER [facility]. Diagnosis: ACUTE DYSPNEA 11/25/17 12:51 Speech Therapy Eval & Treat [ST Eval & Treat (MD Order)] .as ordered Comment: Physician Instructions: Reason For Exam: Evaluate: Yes Treat: Yes Reason for Eval: difficulty swallowing Diagnosis: ACUTE DYSPNEA 11/25/17 13:11 Oxygen NASAL CANNULA 3 lpm Comment: Diagnosis: ACUTE DYSPNEA Discharge Exam General Appearance: obese Neurologic Exam: other (opens eyes tracks answeres no to questions appropriately but no other spontnaneous communication. Drowsy. Right hand chronic contracture. moving all extremities.) Skin Exam: warm, dry Eye Exam: pale conjunctivae, No scleral icterus Ears, Nose, Throat Exam: dry mucous membranes Neck Exam: non-tender, supple Respiratory Exam: lungs clear Cardiovascular Exam: other (distant heart sounds) Gastrointestinal/Abdomen Exam: soft, normal bowel sounds, No tenderness, No distention, No mass Extremity Exam: pedal edema (3+ bilateral lower extremity pitting edema 1+ bilateral hand pittin gedema left arm with skin tear covered with tegaderm), swelling Final Diagnosis/Problem List - Final Discharge Diagnosis/Problem (1) COPD exacerbation Status: Acute (2) Metabolic encephalopathy Status: Acute (3) Acute hypercapnic respiratory failure Status: Acute (4) Hypothermia Status: Resolved (5) CKD (chronic kidney disease) Status: Chronic (6) Type 2 diabetes mellitus Status: Chronic (7) Atrial fibrillation with rapid ventricular response Status: Acute (8) Acute kidney injury Status: Acute (9) Dementia Status: Acute - Discharge Disposition: Skilled Care @ [facility] Condition: Poor Prescriptions: New Prednisone 10 mg [Deltasone 10 mg] 10 mg PO UD #34 tablet Doxycycline Hyclate 100 mg [Vibramycin 100 MG] 100 mg PO BID 7 Days # 14 tab Continue Sertraline HCl 100 mg PO DAILY Pravastatin Sodium 40 mg PO HS Omeprazole 20 mg PO DAILY Insulin Aspart [Novolog Flexpen] 100 unit SQ UD Magnesium Hydroxide 30 ml [Milk of Magnesia 30 ml] 30 ml PO DAILY PRN PRN PRN Reason: Constipation Glucagon 1 mg [GlucaGen 1 MG] 1 mg IM UD PRN PRN Reason: Hypoglycemia Donepezil HCl 10 mg [Aricept 10 MG] 10 mg PO DAILY Docusate Sodium 100 mg [Colace 100 MG] 100 mg PO HS Acetaminophen 325 mg [Tylenol 325 mg] 650 mg PO Q4H PRN PRN PRN Reason: Pain Ondansetron HCl 4 mg PO Q6H PRN PRN PRN Reason: Nausea Magnesium Oxide 400 mg [Mag-Ox 400] 400 mg PO DAILY #30 tablet Folic Acid 1 mg [Folate 1 mg] 1 mg PO DAILY Carvedilol [Coreg] 6.25 mg PO BID Allopurinol 100 mg [Zyloprim 100 mg] 200 mg PO DAILY Albuterol Sulfate 1.25 mg IH Q6H PRN PRN Reason: Shortness Of Breath Levothyroxine Sodium 100 Mcg [Synthroid 100 Mcg] 200 mcg PO DAILY Changed Insulin Glargine,Hum.rec.anlog [Lantus Solostar] 20 unit SQ HS #0 Furosemide 20 mg [Lasix 20 mg] 20 mg PO DAILY #0 Potassium Chl 40 Meq Oral Kymberly* [Potassium Chl 40 Meq/30 ml Oral Solution] 20 meq PO DAILY #30 udcup Discontinued Ferrous Sulfate 220 mg/5 ml [Ferrous Sulfate (IRON) 220 MG/5 ML] 5 ml PO DAILY Oseltamivir Phosphate [Tamiflu] 30 mg PO DAILY Warfarin Sodium 2 mg [Coumadin 2 MG] 4 mg PO DAILY Warfarin Sodium 1 mg [Coumadin 1 MG] 1 mg PO 3XW Additional Instructions: prednisone taper 40 mg po daily for 3 days then 30 mg po daily for 4 days 20mg po daily for 3 days then 10 mg po daily for 4 days CMP, CBC, INR in Next Saturday12/03/17 Follow up with: BUSHRA DAMON [Primary Care Provider] - Forms: Discharge Skin Assessment, Transfer Record [facility]
== END 2017-11-28 13:05 | DRG 190 ==
LOC: ED 11:58 → MED SURG 17:04 → ICU 18:35 → MED SURG 11-25 12:42
PROVIDERS: ADMIT Family Medicine; ATTEND Family Medicine
DX: R06.00 Dyspnea, unspecified (principal); R06.89 Other abnormalities of breathing; I10 Essential (primary) hypertension; J44.1 Chronic obstructive pulmonary disease with (acute) exacerbation; J96.02 Acute respiratory failure with hypercapnia; E10.9 Type 1 diabetes mellitus without complications; G93.41 Metabolic encephalopathy; N17.9 Acute kidney failure, unspecified; T68.XXXA Hypothermia, initial encounter; J44.9 Chronic obstructive pulmonary disease, unspecified; I50.9 Heart failure, unspecified; Z86.73 Personal history of transient ischemic attack (TIA), and cerebral infarction without residual deficits; I12.9 Hypertensive chronic kidney disease with stage 1 through stage 4 chronic kidney disease, or unspecified chronic kidney disease; N18.9 Chronic kidney disease, unspecified; E11.9 Type 2 diabetes mellitus without complications; Z79.4 Long term (current) use of insulin; I48.91 Unspecified atrial fibrillation; Z79.01 Long term (current) use of anticoagulants; E03.9 Hypothyroidism, unspecified; F03.90 Unspecified dementia, unspecified severity, without behavioral disturbance, psychotic disturbance, mood disturbance, and anxiety; K21.9 Gastro-esophageal reflux disease without esophagitis; Z79.899 Other long term (current) drug therapy
CPT/HCPCS: 36000; 36415; 36600; 71045; 74230; 80048; 80053; 82375; 82803; 82805; 82962; 83605; 83735; 83880; 84484; 85025; 85027; 85610; 93005; 93041; 94002; 94003; 94640; 94760; 96360; 96361; 96374; 99285; J1940; J1953; J2543; J2920; A9270-GY

== ENCOUNTER → 2017-12-21 | Emergency (ER) | payer MEDICARE ==
[~2017-12-21] MED LIST: D50W 50 ml Abboject IV ONE; EPINEPHRINE 1MG/ML AMP ONE; EPINEPHRINE ABBOJECT 1 MG ONE; Lanoxin 0.5 MG/2 ML INJECTION IV ONE; Lanoxin 0.5 MG/2 ML INJECTION ONE; Lasix 40 MG/4 ML IV ONE; Lasix 40 MG/4 ML ONE; ROCEPHIN 1 Gm-D5w 50 ml Bag** 1 G/50 ML IVPB IV ONE; ROCEPHIN 1 Gm-D5w 50 ml Bag** 1 G/50 ML IVPB IV STA; Sodium Chloride 0.9% 1000 ML 1,000 ML IV STA; Sodium Chloride 0.9% 1000 ML 1,000 ML ONE; Sodium Chloride 0.9% 250 ML 250 ML IV ONE; Sodium Chloride 3 ML UD NEBULES IH ONE; Xopenex 1.25 MG/0.5 ML UD NEBULE IH ONE; Zithromax 500 MG/ 250 ML NaCl Premix 500 MG/250 ML IVPB IV ONE; Zithromax 500 MG/ 250 ML NaCl Premix 500 MG/250 ML IVPB IV STA
--- NOTE | 2017-12-21 19:14 | ERPHSYRPT ---
- History of Present Illness Time Seen by Provider: 12/21/17 19:07 Source: EMS Exam Limitations: clinical condition (UNRESPONSIVE) Physician History: FOR THE PAST 7 HOURS PT HAS BEEN UNRESPONSIVE AND WAS GIVEN GLUCAGON X3. PT IS UNRESPONSIVE. Allergies/Adverse Reactions: KERLINE Inhibitors Allergy (Verified 12/21/17 21:05) adhesive tape Allergy (Verified 12/21/17 21:05) atorvastatin [From Lipitor] Allergy (Verified 12/21/17 21:05) codeine Allergy (Verified 12/21/17 21:05) diphenhydramine Allergy (Verified 12/21/17 21:05) levofloxacin [From Levaquin] Allergy (Verified 12/21/17 21:05) meperidine Allergy (Verified 12/21/17 21:05) NSAIDS (Non-Steroidal Anti-Inflamma Allergy (Verified 12/21/17 21:05) Penicillins Allergy (Verified 12/21/17 21:05) simvastatin [From Zocor] Allergy (Verified 12/21/17 21:05) Home Medications: Acetaminophen 325 mg [Tylenol 325 mg] 650 mg PO Q4H PRN PRN 09/30/17 [ History] Docusate Sodium 100 mg [Colace 100 MG] 100 mg PO HS 09/30/17 [History] Donepezil HCl 10 mg [Aricept 10 MG] 10 mg PO DAILY 09/30/17 [History] Glucagon 1 mg [GlucaGen 1 MG] 1 mg IM UD PRN 09/30/17 [History] Insulin Aspart [Novolog Flexpen] 100 unit SQ UD 09/30/17 [History] Magnesium Hydroxide 30 ml [Milk of Magnesia 30 ml] 30 ml PO DAILY PRN PRN 09/30/17 [History] Omeprazole 20 mg PO DAILY 09/30/17 [History] Ondansetron HCl 4 mg PO Q6H PRN PRN 09/30/17 [History] Pravastatin Sodium 40 mg PO HS 09/30/17 [History] Sertraline HCl 100 mg PO DAILY 09/30/17 [History] Albuterol Sulfate 1.25 mg IH Q6H PRN 11/22/17 [History] Allopurinol 100 mg [Zyloprim 100 mg] 200 mg PO DAILY 11/22/17 [History] Carvedilol [Coreg] 6.25 mg PO BID 11/22/17 [History] Folic Acid 1 mg [Folate 1 mg] 1 mg PO DAILY 11/22/17 [History] Levothyroxine Sodium 100 Mcg [Synthroid 100 Mcg] 200 mcg PO DAILY 11/22/17 [History] Warfarin Sodium 2 mg [Coumadin 2 MG] 2 mg PO DAILY 12/21/17 [History] Hx Tetanus, Diphtheria Vaccination/Date Given: (unknown) Hx Influenza Vaccination/Date Given: (unknown) Hx Pneumococcal Vaccination/Date Given: (unknown) - Review of Systems All Other Systems: Unable due to condition (PT IS UNRESPONSIVE) - Past Medical History Pertinent Past Medical History: Yes Neurological History: Dementia, Stroke Cardiac History: Congestive Heart Failure, Hypertension Respiratory History: CHF, COPD, Other Endocrine Medical History: Diabetes Type I, Hypothyroidism Musculoskeletal History: No Pertinent History GI Medical History: GERD History: Other Other Medical History: Pt is a poor historian - Past Surgical History Past Surgical History: Yes Gastrointestinal: Bowel Surgery Female Surgical History: Hysterectomy Other Surgical History: tonsillectomy. Pt poor historian - Social History Smoking Status: Unknown if ever smoked Exposure to second hand smoke: No Drug Use: none [facility] [place] Significant Family History: no pertinent family hx - Nursing Vital Signs Nursing Vital Signs: Initial Vital Signs O2 Sat by Pulse Oximetry 100 12/21/17 19:23 - Physical Exam General Appearance: other (UNRESPONSIVE) Eye Exam: other (CATARACT IN LEFT EYE) Ears, Nose, Throat Exam: TMs normal, dry mucous membranes, pharyngeal erythema Neck Exam: normal inspection Respiratory Exam: normal breath sounds Cardiovascular Exam: tachycardia Gastrointestinal/Abdomen Exam: soft, normal bowel sounds Back Exam: other (DECUBITUS ULCER MID BACK) Extremity Exam: pedal edema (+3 ANKLE/PEDAL EDEMA BILATERALLY) Neurologic Exam: other (UNRESPONSIVE; TONGUE TO LEFT OF MIDLINE RETRACTED.) Skin Exam: pale SpO2 Interpretation: normal SpO2: 98 Oxygen Delivery: Nasal Cannula (4L) - Course Nursing assessment & vital signs reviewed: Yes EKG Interpreted by Me: RATE (153), A-fib, Left [place] Deviation, Non-specific ST Changes - Radiology Exams Chest X-ray Interpretation: Interpreted by me (PNEUMONIA RIGHT LUNG) - CT Exams Head CT Interpretation: Tele-radiologist Report (AGE-RELATED ATROPHY AND CHRONIC WHITE MATTER ISCHEMIC CHANGES WITH NO EVIDENCE OF AN ACUTE INTRACRANIAL ABNORMALITY. PANSINUS DISEASE.) Ordered Tests: Active Orders 24 hr Category Date Time Status Accucheck STAT Care 12/21/17 19:11 Active Accucheck STAT Care 12/21/17 20:41 Active Bowling Ball Engraver STAT Care 12/21/17 19:10 Active Catheter-[place] Vo STAT Care 12/21/17 19:08 Active EKG-ER Only STAT Care 12/21/17 19:08 Active IV Insertion STAT Care 12/21/17 19:08 Active Oxygen-ED Only NASAL CANNULA 4 lpm Care 12/21/17 19:08 Active Pulse Oximetry (ED) STAT Care 12/21/17 19:08 Active CHEST 1 VIEW (PORTABLE) Stat Exams 12/21/17 19:10 Taken HEAD WITHOUT CONTRAST [CT] Stat Exams 12/21/17 19:14 Taken AMYLASE Stat Lab 12/21/17 19:45 Completed ARTERIAL BLOOD GASES Urgent Lab 12/21/17 20:17 Completed BLOOD CULTURE Stat Lab 12/21/17 19:45 Received CBC W DIFF Stat Lab 12/21/17 19:45 Completed CMP Stat Lab 12/21/17 19:45 Completed CULTURE, THROAT Stat Lab 12/21/17 19:45 Received CULTURE,SPUTUM Stat Lab 12/21/17 19:12 Uncollected CULTURE,URINE Stat Lab 12/21/17 20:43 Received LIPASE Stat Lab 12/21/17 19:45 Completed Lactic Acid Stat Lab 12/21/17 20:17 Completed MAGNESIUM Stat Lab 12/21/17 19:45 Completed NT PRO BNP Stat Lab 12/21/17 19:45 Completed PROTIME WITH INR Stat Lab 12/21/17 19:45 Completed PTT Stat Lab 12/21/17 19:45 Completed STREP SCREEN-BETA A Stat Lab 12/21/17 19:45 Completed T4 Urgent Lab 12/21/17 19:45 Completed TROPONIN Q3H Lab 12/21/17 19:45 Completed TROPONIN Q3H Lab 12/21/17 22:28 Received TROPONIN Q3H Lab 12/22/17 01:15 Ordered TROPONIN Q3H Lab 12/22/17 04:15 Ordered TROPONIN Q3H Lab 12/22/17 07:15 Ordered TSH, 3RD Generation Urgent Lab 12/21/17 19:45 Completed UA W/ MICROSCOPIC Stat Lab 12/21/17 20:43 Completed Respiratory Nebulizer UD RT 12/21/17 22:00 Completed Medication Summary Generic Name Dose Route Start Last Admin Trade Name Freq PRN Reason Stop Dose Admin Sodium Chloride 1,000 mls @ 999 mls/hr 12/21/17 21:34 12/21/17 21:47 Sodium Chloride 0.9% 1000 Ml IV 12/21/17 22:34 999 mls/hr .Q1H1M STA Administration Azithromycin 500 mg in 250 mls @ 250 mls/hr 12/21/17 21:47 Zithromax 500 Mg/ 250 Ml Nacl Premix IV 12/21/17 22:46 STAT STA Discontinued Medications Generic Name Dose Route Start Last Admin Trade Name Freq PRN Reason Stop Dose Admin Dextrose 50 ml 12/21/17 19:24 12/21/17 19:43 D50w 50 Ml Abboject IV 12/21/17 19:25 50 ml STAT ONE Administration Dextrose Confirm 12/21/17 19:42 D50w 50 Ml Abboject Administered 12/21/17 19:43 Dose 50 ml IV .STK-MED ONE Sodium Chloride 1,000 mls @ 999 mls/hr 12/21/17 19:08 12/21/17 19:43 Sodium Chloride 0.9% 1000 Ml IV 12/21/17 20:08 999 mls/hr .Q1H1M STA Administration Sodium Chloride Confirm 12/21/17 19:42 Sodium Chloride 0.9% 1000 Ml Administered 12/21/17 19:43 Dose 1,000 mls @ ud .ROUTE .STK-MED ONE Ceftriaxone Sodium/Dextrose 1 g in 50 mls @ 100 mls/hr 12/21/17 21:16 21:47 Rocephin 1 Gm-D5w 50 Ml Bag IV 12/21/17 21:45 100 mls/hr STAT STA Administration Sodium Chloride Confirm 12/21/17 21:45 Sodium Chloride 0.9% 1000 Ml Administered 12/21/17 21:46 Dose 1,000 mls @ ud .ROUTE .STK-MED ONE Ceftriaxone Sodium/Dextrose Confirm 12/21/17 21:45 Rocephin 1 Gm-D5w 50 Ml Bag Administered 12/21/17 21:46 Dose 1 g in 50 mls @ ud IV .STK-MED ONE Levalbuterol HCl 1.25 mg 12/21/17 21:48 12/21/17 21:57 Xopenex 1.25 Mg/0.5 Ml Ud Nebule IH 12/21/17 21:49 1.25 mg STAT ONE Administration Levalbuterol HCl Confirm 12/21/17 21:56 Xopenex 1.25 Mg/0.5 Ml Ud Nebule Administered 12/21/17 21:57 Dose 1.25 mg IH .STK-MED ONE Sodium Chloride Confirm 12/21/17 21:56 Sodium Chloride 3 Ml Ud Nebules Administered 12/21/17 21:57 Dose 3 ml IH .STK-MED ONE Lab/Rad Data: Laboratory Result Diagrams 12/21/17 19:45 12/21/17 19:45 Laboratory Results 12/21/17 12/21/17 12/21/17 Range/Units 20:43 20:17 20:17 WBC (4.0-10.5) K/mm3 RBC (4.1-5.4) M/mm3 Hgb (12.0-16.0) gm/dl Hct (35-47) % MCV (78-100) fl MCH (26-32) pg MCHC (32-36) g/dl RDW (11.5-14.0) % Plt Count (150-450) K/mm3 MPV (6-9.5) fl Gran % (36.0-66.0) % Lymphocytes % (24.0-44.0) % Monocytes % (0.0-12.0) % Eosinophils % (0.00-5.0) % Basophils % (0.0-0.4) % Basophils # (0-0.4) INR (0.8-3.0) APTT (25.3-37.0) SECONDS Puncture Site RIGHT RADIAL pCO2 61 H* (35-45) mmHg pO2 136 H* (75-100) mmHg Base Excess 9.4 H (-2.0-2.0) O2 Saturation 96.6 (94-100) g/dF ABG pH 7.38 (7.35-7.45) ABG HCO3 36.1 H* (22-28) ABG O2 Sat (Measured) 99.5 (95-100) % Blaze Test YES A-a Gradient 30 a/A Ratio 0.82 Hemoglobin 9.6 Carboxyhemoglobin 1.8 (0.0-6.9) % THgb Methemoglobin 1.1 L (1.4-1.5) % Temperature 37.0 C POC O2 Flow Rate 34 % Sodium (136-145) mEq/L Potassium 4.8 (3.5-5.1) mEq/L Chloride (98-107) mEq/L Carbon Dioxide (21-32) mEq/L Anion Gap (5-15) MEQ/L BUN (9-20) mg/dL Creatinine (0.55-1.30) mg/dl Estimated GFR ML/MIN Glucose (70-110) MG/DL Lactic Acid 1.5 (0.4-2.0) Calcium (8.5-10.1) mg/dL Magnesium (1.8-2.4) mg/dL Total Bilirubin (0.2-1.0) mg/dL AST (15-37) U/L ALT (12-78) U/L Alkaline Phosphatase (46-116) U/L Troponin I (0.000-0.056) ng/ml NT-Pro-B Natriuret Pep (0-450) pg/ml Serum Total Protein (6.4-8.2) gm/dL Albumin (3.4-5.0) g/dL Amylase (25-115) U/L Lipase (73-393) U/L Thyroxine (T4) (4.7-13.3) UG/DL TSH 3rd Generation (0.358-3.740) mIU/L Ur Collection Type CATH Urine Color YELLOW (YELLOW) Urine Appearance CLOUDY (CLEAR) Urine pH 5.0 (5-6) Ur Specific Burton 1.020 (1.005-1.025) Urine Protein 30 (Negative) Urine Ketones SMALL (NEGATIVE) Urine Blood 250 (0-5) Asad/ul Urine Nitrite POSITIVE (NEGATIVE) Urine Bilirubin NEGATIVE (NEGATIVE) Urine Urobilinogen NORMAL (0-1) mg/dL Ur Leukocyte Esterase 2+ (NEGATIVE) Urine Microscopic RBC 5-10 (0-2) /HPF Urine Microscopic WBC 25-50 (0-5) /HPF Ur Epithelial Cells MODERATE (FEW) /HPF Urine Bacteria MANY (NEGATIVE) /HPF Hyaline Casts 0-2 (0-2) /LPF Urine Culture Reflexed YES (NO) Urine Glucose NEGATIVE (NEGATIVE) mg/dL Influenza Type A Ag (NEGATIVE) Influenza Type B Ag (NEGATIVE) RSV (PCR) (Negative) Streptococcus Screen (Negative) Slides for Path Review Specimen Received 12/21/17204412/21/17 12/21/17 12/21/17 Range/Units 19:45 19:45 19:45 WBC (4.0-10.5) K/mm3 RBC (4.1-5.4) M/mm3 Hgb (12.0-16.0) gm/dl Hct (35-47) % MCV (78-100) fl MCH (26-32) pg MCHC (32-36) g/dl RDW (11.5-14.0) % Plt Count (150-450) K/mm3 MPV (6-9.5) fl Gran % (36.0-66.0) % Lymphocytes % (24.0-44.0) % Monocytes % (0.0-12.0) % Eosinophils % (0.00-5.0) % Basophils % (0.0-0.4) % Basophils # (0-0.4) INR (0.8-3.0) APTT (25.3-37.0) SECONDS Puncture Site pCO2 (35-45) mmHg pO2 (75-100) mmHg Base Excess (-2.0-2.0) O2 Saturation (94-100) g/dF ABG pH (7.35-7.45) ABG HCO3 (22-28) ABG O2 Sat (Measured) (95-100) % Blaze Test A-a Gradient a/A Ratio Hemoglobin Carboxyhemoglobin (0.0-6.9) % THgb Methemoglobin (1.4-1.5) % Temperature C POC O2 Flow Rate % Sodium (136-145) mEq/L Potassium (3.5-5.1) mEq/L Chloride (98-107) mEq/L Carbon Dioxide (21-32) mEq/L Anion Gap (5-15) MEQ/L BUN (9-20) mg/dL Creatinine (0.55-1.30) mg/dl Estimated GFR ML/MIN Glucose (70-110) MG/DL Lactic Acid (0.4-2.0) Calcium (8.5-10.1) mg/dL Magnesium (1.8-2.4) mg/dL Total Bilirubin (0.2-1.0) mg/dL AST (15-37) U/L ALT (12-78) U/L Alkaline Phosphatase (46-116) U/L Troponin I 0.017 (0.000-0.056) ng/ml NT-Pro-B Natriuret Pep (0-450) pg/ml Serum Total Protein (6.4-8.2) gm/dL Albumin (3.4-5.0) g/dL Amylase (25-115) U/L Lipase (73-393) U/L Thyroxine (T4) 4.8 (4.7-13.3) UG/DL TSH 3rd Generation 0.455 (0.358-3.740) mIU/L Ur Collection Type Urine Color (YELLOW) Urine Appearance (CLEAR) Urine pH (5-6) Ur Specific Burton (1.005-1.025) Urine Protein (Negative) Urine Ketones (NEGATIVE) Urine Blood (0-5) Asad/ul Urine Nitrite (NEGATIVE) Urine Bilirubin (NEGATIVE) Urine Urobilinogen (0-1) mg/dL Ur Leukocyte Esterase (NEGATIVE) Urine Microscopic RBC (0-2) /HPF Urine Microscopic WBC (0-5) /HPF Ur Epithelial Cells (FEW) /HPF Urine Bacteria (NEGATIVE) /HPF Hyaline Casts (0-2) /LPF Urine Culture Reflexed (NO) Urine Glucose (NEGATIVE) mg/dL Influenza Type A Ag NEGATIVE (NEGATIVE) Influenza Type B Ag NEGATIVE (NEGATIVE) RSV (PCR) NEGATIVE (Negative) Streptococcus Screen NEGATIVE (Negative) Slides for Path Review Specimen Received 12/21/17 12/21/17 12/21/17 Range/Units 19:45 19:45 19:45 WBC 10.6 H (4.0-10.5) K/mm3 RBC 3.44 L (4.1-5.4) M/mm3 Hgb 10.1 L (12.0-16.0) gm/dl Hct 35.7 (35-47) % MCV 103.8 H (78-100) fl MCH 29.3 (26-32) pg MCHC 28.3 L (32-36) g/dl RDW 16.9 H (11.5-14.0) % Plt Count 166 (150-450) K/mm3 MPV 13.5 H (6-9.5) fl Gran % 70.8 H (36.0-66.0) % Lymphocytes % 17.9 L (24.0-44.0) % Monocytes % 10.3 (0.0-12.0) % Eosinophils % 0.8 (0.00-5.0) % Basophils % 0.2 (0.0-0.4) % Basophils # 0.02 (0-0.4) INR 7.27 H* (0.8-3.0) APTT 35.7 (25.3-37.0) SECONDS Puncture Site pCO2 (35-45) mmHg pO2 (75-100) mmHg Base Excess (-2.0-2.0) O2 Saturation (94-100) g/dF ABG pH (7.35-7.45) ABG HCO3 (22-28) ABG O2 Sat (Measured) (95-100) % Blaze Test A-a Gradient a/A Ratio Hemoglobin Carboxyhemoglobin (0.0-6.9) % THgb Methemoglobin (1.4-1.5) % Temperature C POC O2 Flow Rate % Sodium 153 H* (136-145) mEq/L Potassium 5.2 H (3.5-5.1) mEq/L Chloride 114 H (98-107) mEq/L Carbon Dioxide 35.1 H (21-32) mEq/L Anion Gap 9.0 (5-15) MEQ/L BUN 55 H (9-20) mg/dL Creatinine 2.66 H (0.55-1.30) mg/dl Estimated GFR 18 ML/MIN Glucose 57 L (70-110) MG/DL Lactic Acid (0.4-2.0) Calcium 9.2 (8.5-10.1) mg/dL Magnesium 2.5 H (1.8-2.4) mg/dL Total Bilirubin 0.40 (0.2-1.0) mg/dL AST 356 H (15-37) U/L ALT 236 H (12-78) U/L Alkaline Phosphatase 170 H (46-116) U/L Troponin I (0.000-0.056) ng/ml NT-Pro-B Natriuret Pep 65393 H (0-450) pg/ml Serum Total Protein 6.4 (6.4-8.2) gm/dL Albumin 1.8 L (3.4-5.0) g/dL Amylase 12 L (25-115) U/L Lipase 30 L (73-393) U/L Thyroxine (T4) (4.7-13.3) UG/DL TSH 3rd Generation (0.358-3.740) mIU/L Ur Collection Type Urine Color (YELLOW) Urine Appearance (CLEAR) Urine pH (5-6) Ur Specific Burton (1.005-1.025) Urine Protein (Negative) Urine Ketones (NEGATIVE) Urine Blood (0-5) Asad/ul Urine Nitrite (NEGATIVE) Urine Bilirubin (NEGATIVE) Urine Urobilinogen (0-1) mg/dL Ur Leukocyte Esterase (NEGATIVE) Urine Microscopic RBC (0-2) /HPF Urine Microscopic WBC (0-5) /HPF Ur Epithelial Cells (FEW) /HPF Urine Bacteria (NEGATIVE) /HPF Hyaline Casts (0-2) /LPF Urine Culture Reflexed (NO) Urine Glucose (NEGATIVE) mg/dL Influenza Type A Ag (NEGATIVE) Influenza Type B Ag (NEGATIVE) RSV (PCR) (Negative) Streptococcus Screen (Negative) Slides for Path Review YES Specimen Received - Progress Discussed with : Jacqueline (OBS ICU - [id number]) - Departure Time of Disposition: 22:34 Departure Disposition: Observation Clinical Impression: AMS, PNEUMONIA, UTI, ELEVATED INR, HYPOGLYCEMIA, HYPERNATREMIA, HTN, COPD, DM, HYPOTHYROIDISM, GERD, SINUSITIS, DEMENTIA Condition: Stable Critical Care Time: Yes Critical Care Time(excluding separately billable procedures): 30-74 minutes Referrals: BUSHRA DAMON [Primary Care Provider] -
[2017-12-21 19:56] LABS: BASOPHIL % 0.2 % (0.0-0.4); Basophil (Absolute #) 0.02 (0-0.4); Eosinophil % 0.8 % (0.00-5.0); Eosinophil (Absolute #) 0.09 (0-0.5); Granulocyte Absolute (ANC) 7.49 (1.4-6.9); Granulocytes % 70.8 % (36.0-66.0); Hematocrit 35.7 % (35-47); Hemoglobin 10.1 gm/dl (12.0-16.0); Lymphocytes % 17.9 % (24.0-44.0); Mean Cell Volume 103.8 fl (78-100); Mean Corpuscular Hgb Concent. 28.3 g/dl (32-36); Mean Platelet Volume 13.5 fl (6-9.5); Monocyte (Absolute #) 1.09 (0.0-1.3); Monocytes % 10.3 % (0.0-12.0); Platelet Count 166 K/mm3 (150-450); Red Blood Count 3.44 M/mm3 (4.1-5.4); Red Cell Distribution Width 16.9 % (11.5-14.0); White Blood Count 10.6 K/mm3 (4.0-10.5)
[2017-12-21 20:03] LABS: Mean Corpuscular Hemoglobin 29.3 pg (26-32)
[2017-12-21 20:21] LABS: ALBUMIN 1.8 g/dL (3.4-5.0); BILIRUBIN,TOTAL 0.4 mg/dL (0.2-1.0); Calcium 9.2 mg/dL (8.5-10.1); Carbon Dioxide 35.1 mEq/L (21-32); Creatinine 1 2.66 mg/dl (0.55-1.30); MAGNESIUM 2.5 mg/dL (1.8-2.4); Potassium 5.2 mEq/L (3.5-5.1); Total Protein 6.4 gm/dL (6.4-8.2)
[2017-12-21 20:24] LABS: PTT 35.7 SECONDS (25.3-37.0)
[2017-12-21 20:28] LABS: T4 4.8 UG/DL (4.7-13.3); TROPONIN 0.017 ng/ml (0.000-0.056); TSH, 3RD Generation 0.455 mIU/L (0.358-3.740)
[2017-12-21 20:32] LABS: INR 7.27 (0.8-3.0)
[2017-12-21 20:39] LABS: A-aADO2 30; ABG HEMOGLOBIN 9.6; ABG POTASSIUM 4.8 (3.5-5.1); ARTERIAL BLD GAS O2 SATURATION 99.5 % (95-100); ARTERIAL BLOOD GAS BASE EXCESS 9.4 (-2.0-2.0); ARTERIAL BLOOD GAS FIO2 34 %; ARTERIAL BLOOD GAS PO2 136 mmHg (75-100); ARTERIAL BLOOD GAS pH 7.38 (7.35-7.45); CARBOXYHEMOGLOBIN 1.8 % THgb (0.0-6.9); HCO3- 36.1 (22-28); HGB O2 SAT 96.6 g/dF (94-100); Methhemoglobin 1.1 % (1.4-1.5); paO2 pAO1 0.82
[2017-12-21 20:40] LABS: ABG SITE RIGHT RADIAL; ALLEN TEST OK? YES; ARTERIAL BLOOD GAS PCO2 61 mmHg (35-45)
[2017-12-21 21:00] LABS: INFLUENZA A NEGATIVE (NEGATIVE); INFLUENZA B NEGATIVE (NEGATIVE); RESPIRATORY SYNCTIAL VIRUS NEGATIVE (Negative)
[2017-12-21 21:07] LABS: Appearance CLOUDY (CLEAR); Bilirubin NEGATIVE (NEGATIVE); Blood 250 Ery/ul (0-5); Glucose NEGATIVE (NEGATIVE); Ketones SMALL (NEGATIVE); Leukocyte Esterase 2+ (NEGATIVE); Nitrite POSITIVE (NEGATIVE); Protein,Urine Dip 30 (Negative); Urobilinogen NORMAL mg/dL (0-1)
[2017-12-21 21:08] LABS: Bacteria MANY /HPF (NEGATIVE); Epithelial Cells MODERATE /HPF (FEW); Hyaline Casts 0-2 /LPF (0-2); WBC 25-50 /HPF (0-5)
[2017-12-21 21:13] LABS: Slide Review 1 YES
[2017-12-22 00:08] VITALS: O2SAT 97
[2017-12-22 01:37] VITALS: BP 86/67; PULSE 132
--- NOTE | 2017-12-22 08:29 | XRAY ---
Indication: Acute mental status change. Multiple contiguous axial images obtained through the head without contrast. Comparison: None Age-appropriate global atrophy and moderate periventricular degenerative micro-ischemia bilaterally. No acute intracranial hemorrhage, abnormal extra-axial fluid collection, or mass effect. Fourth ventricle is midline. Bony calvarium intact. Near complete opacification of the left maxillary sinus with fluid leveling and moderate mucosal thickening of both sphenoid/right ethmoid sinuses. Mastoid air cells are clear. Impression: Nonacute senile brain. Incidental pansinusitis. Comment: Preliminary interpretation was made by [facility]. No discrepancy. CTDI 63.90
--- NOTE | 2017-12-22 08:31 | XRAY ---
Indication: Acute mental status change. Comparison: November 24, 2013. Portable chest remains slightly underinflated with new right base infiltrate/atelectasis and stable left midlung atelectasis/scarring, cardiomegaly, and a few calcified granulomas. Remaining chest unremarkable.
== END | disposition expired ==
LOC: ED 19:07
DX: R41.82 Altered mental status, unspecified (principal); J18.9 Pneumonia, unspecified organism; N39.0 Urinary tract infection, site not specified; R79.1 Abnormal coagulation profile; E11.649 Type 2 diabetes mellitus with hypoglycemia without coma; Z79.4 Long term (current) use of insulin; E87.0 Hyperosmolality and hypernatremia; I10 Essential (primary) hypertension; J44.9 Chronic obstructive pulmonary disease, unspecified; E03.9 Hypothyroidism, unspecified; K21.9 Gastro-esophageal reflux disease without esophagitis; J32.9 Chronic sinusitis, unspecified; F03.90 Unspecified dementia, unspecified severity, without behavioral disturbance, psychotic disturbance, mood disturbance, and anxiety; I48.91 Unspecified atrial fibrillation; R00.1 Bradycardia, unspecified; Z79.01 Long term (current) use of anticoagulants; L89.109 Pressure ulcer of unspecified part of back, unspecified stage
CPT/HCPCS: 36000; 36415; 36600; 51702; 70450; 71045; 80053; 81000; 82150; 82375; 82803; 82962; 83605; 83690; 83735; 83880; 84436; 84443; 84484; 85025; 85610; 85730; 87040; 87070; 87077; 87086; 87186; 87430; 87631; 89220; 93005; 93041; 94640; 96360; 96361; 96365; 96366; 96372; 96374; 96375; 99291; 99292; J0171; J0456; J0696; J1160; J1940; A9270-GY